=== PATIENT | female | born 1985 | race Caucasian/White ===

== ENCOUNTER 2022-07-28 04:55 | Inpatient (IN) | payer OTHER, SELFPAY ==
[2022-07-28] VITALS (7 sets, daily range): BP systolic 104–138; BP diastolic 65–87; PULSE 64–78; RESP 15–22; TEMP 36.3–36.9; O2SAT 98–100; BMI 23.6
--- NOTE | 2022-07-28 | ECG_ITS ---
Test Reason : BASELINE QTC Blood Pressure : / mmHG Vent. Rate : 068 BPM Atrial Rate : 068 BPM P-R Int : 140 ms QRS Dur : 086 ms QT Int : 420 ms P-R-T Axes : 052 -09 046 degrees QTc Int : 446 ms Normal sinus rhythm Normal ECG No previous ECGs available Referred By: Carlee Holbrook Electronically Signed By:MARÍA SANDERS
--- NOTE | ~2022-07-28 | CT_ITS ---
EXAMINATION: CT ABDOMEN AND PELVIS WITHOUT CONTRAST CLINICAL INFORMATION: Abdominal pain with constant vomiting. COMPARISON: None available. TECHNIQUE: Multidetector volumetric imaging was performed from the superior aspect of the liver through the pubic symphysis. Sagittal and coronal reformatted images were obtained on the technologist's workstation. Lack of intravenous and oral contrast limits visceral evaluation. This CT examination was performed using dose optimization techniques as appropriate, variously including the following: *Automated exposure control *Adjustment of mA and/or kV according to patient size (this includes techniques or standardized protocols for targeted exams where dose is matched to indication/reason for exam; i.e. extremities or head) *Use of iterative reconstruction technique DLP: 371 mGy-cm FINDINGS: LUNG BASES: LIVER, GALLBLADDER, AND BILIARY TREE: Unremarkable. PANCREAS: Unremarkable. SPLEEN: Unremarkable. ADRENAL GLANDS: Unremarkable. KIDNEYS AND URETERS: Several nonobstructing intrarenal calculi are seen bilaterally. One of the largest is seen in the interpolar left kidney measuring 0.3 cm (image 51, series 4). BLADDER: Unremarkable. GASTROINTESTINAL TRACT: The distal esophagus. The stomach is unremarkable. The small bowel and appendix are unremarkable. The colon and rectum are unremarkable. ABDOMINAL WALL: No significant hernia is appreciated. LYMPH NODES: No lymphadenopathy. VASCULAR: Unremarkable. PELVIC VISCERA: Unremarkable. OSSEOUS STRUCTURES: Unremarkable. CT/CT abdomen pelvis wo IV con IMPRESSION: 1. No acute intra-abdominal/pelvic abnormality to explain the patient's symptoms. 2. Nonobstructing intrarenal calculi bilaterally.
[2022-07-28 05:19] LABS: Basophils Absolute Auto 0.1 X10*3/uL (0.0-0.2); Basophils Percent Auto 0.5 % (0-2); Eosinophils Absolute Auto 0.2 X10*3/uL (0.0-0.4); Eosinophils Percent Auto 1.2 % (0-4); Hematocrit 41.4 % (37.0-47.0); Hemoglobin 14.5 g/dl (12.0-16.0); Imm Gran Abs Auto 0.06 X10*3/uL (0.00-0.03); Imm Gran Pct Auto 0.5 % (0.0-0.4); Lymphocytes Absolute Auto 1.8 X10*3/uL (1.2-4.9); Lymphocytes Percent Auto 14.1 % (20-40); MANUAL DIFF FLAG NO; Mean Corpuscular Hemoglobin 31.9 pg (27.0-33.0); Mean Corpuscular Volume 91.2 fL (80.0-98.0); Mean Platelet Volume 9.7 fL (9.4-12.3); Monocytes Absolute Auto 1.1 X10*3/uL (0.1-1.2); Monocytes Percent Auto 8.6 % (2-11); Neutrophils Absolute Auto 9.7 x10*3/uL (2.0-8.3); Neutrophils Percent Auto 75.1 % (45-73); Platelet Count 295 X10*3/uL (160-400); Red Blood Count 4.54 X10*6/uL (4.20-5.50); Red Cell Distribution Width 11.7 % (11.0-16.0); White Blood Count 12.9 X10*3/uL (4.8-10.8)
[2022-07-28 05:30] LABS: Appearance Urine Clear; Color Urine Yellow; Glucose Urine UA Negative (Negative); Leukocyte Esterase Urine Negative (Negative); Nitrite Urine Negative (Negative); PH 8.5 (5.0-9.0); Specific Gravity - Urine 1.015 (1.005-1.025); Urine Blood Negative (Negative); Urine Ketones 40 mg/dL (Negative); Urine Protein Negative (Neg-Trace)
[2022-07-28 05:35] LABS: Alanine Aminotransferase 23 U/L (0-31); Albumin Level 4.3 g/dL (3.5-5.0); Alkaline Phosphatase 49 U/L (39-117); Anion Gap 15 (12-20); Aspartate Amino Transferase 19 U/L (5-31); Bilirubin Direct 0.2 mg/dL (0.0-0.5); Bilirubin Total 0.5 mg/dL (0.0-1.0); Blood Urea Nitrogen 13 mg/dL (9-16); Calcium 9.4 mg/dL (8.4-10.2); Carbon Dioxide 20 mmol/L (22-29); Chloride 108 mmol/L (96-108); Creatinine Clr Calc Pharmacy 77.9; Estimated Glomerular Filt Rate > 60; Glucose Random 124 mg/dL (60-115); Lipase 62 U/L (8-78); Potassium 3.3 mmol/L (3.3-5.1); Sodium 140 mmol/L (135-145)
[2022-07-28] MEDS: 0.9 % Sodium Chloride 1,000 ML 999 ML IV (06:12)
[2022-07-28] MEDS: ondansetron HCL 4 MG/2 ML VIAL IVPUSH ×2 (06:12→08:09)
[2022-07-28 07:08] LABS: HCG Quantitative < 2 mIU/mL
--- NOTE | 2022-07-28 07:45 | ED.NAVMDI ---
HPI - Nausea/Vomiting/Diarrhea General Chief complaint: Nausea/Vomiting/Diarrhea Stated complaint: Vomiting & diarrhea Time Seen by Provider: 07/28/22 06:47 Source: patient Mode of arrival: ambulatory Limitations: no limitations History of Present Illness HPI Narrative: 37-year-old female came in for evaluation of persistent vomiting for the past 5-7 days. Been having vomiting for the past 7 days, patient drinks alcohol daily and smokes marijuana otherwise declines any other drugs, for the past week patient been having intractable nausea and vomiting and diffuse abdominal cramps. With nonbloody watery diarrhea patient was seen and evaluated in the ED at [facility] was given medication and felt better symptoms start worsening again. No radiographic studies done at the [facility] as per patient. Related Data Allergies Allergy/AdvReac Type Severity Reaction Status Date / Time No Known Allergies Allergy Verified 07/28/22 06:48 Review of Systems Review of Systems: All other systems are reviewed and are negative Constitutional: Reports as per HPI and Reports no additional constitutional complaints Eyes: Reports as per HPI and Reports no additional eye complaints Reports system reviewed and no additional complaints, except as documented Cardiovascular: Reports as per HPI and Reports no additional cardiovascular complaints Respiratory: Reports as per HPI and Reports no additional respiratory complaints Gastrointestinal: Reports as per HPI and Reports no additional gastrointestinal complaints Genitourinary: Reports no additional female genitourinary complaints Musculoskeletal: Reports no additional musculoskeletal complaints Skin/Breast: Reports system reviewed and no additional complaints, except as docu Psychiatric: Reports no additional psychiatric complaints Endocrine: Reports no additional endocrine complaints Hematologic/Lymphatic: Reports no additional hematologic/lymphatic complaints Allergic/Immunologic: Reports no additional allergic/immunologic complaints Reports system reviewed and no additional complaints, except as documented and Reports Abnormal speech present REPLACED BY [facility] Social History Social History Alcohol intake: current Alcohol intake frequency: holidays/special occasions only Smoked in Last 30 Days: No Use of substances other than those prescribed or required for medical reasons: No Advance Directives: No Patient : No Physical Exam Vital Signs: Vital Signs: Last Vital Signs Temp 98.2 F 07/28/22 05:03 Pulse 64 07/28/22 07:34 Resp 22 H 07/28/22 07:34 BP 138/87 07/28/22 07:34 Pulse Ox 100 07/28/22 07:34 O2 Del Method Room Air 07/28/22 07:34 BMI result Body Mass Index 23.6 Vital signs have been reviewed as appeared to be correct. Blood pressure normal. Heart rate normal. Respiration rate normal. Temperature normal. Oxygen saturation normal. Appearance: Alert. Oriented X3. No acute distress. Head: Normal external exam. Normocephalic. Atraumatic. No Beauchamp signs noted. No raccoon eyes noted Eyes: PERRLA. EOMI. Conjunctiva and sclera normal. Eyelids normal. ENT: TM's Normal. Pharynx normal. Uvula midline. Moist mucous membranes. No trismus noted. No drooling noted. No muffled voice noted. Neck: Normal inspection. Neck supple. FROM. No adenopathy. Thyroid Normal. No meningeal signs. No neck mass noted. CVS: Normal heart rate and rhythm. Heart sound normal. No murmurs noted. Pulses normal throughout. Respiratory: No respiratory distress. Painless inspiration. Breath sounds normal. No wheezes/rales/rhonchi noted. Chest nontender. No accessory muscle usage noted or decreased air movement noted. Abdomen: Soft and nontender. Bowel sounds normal in all 4 quadrants. No distention noted. No organomegaly noted. No visible injury noted. Back: No CVA tenderness. Full range of motion noted. Skin: Skin warm and dry. Normal skin color. Normal skin turgor. No rashes/lesions/lacerations noted. Extremities: No lower extremity edema. Extremities exhibit normal range of motion. Extremities nontender. Neuro: Oriented X 3. Cranial nerve exam: II-XII are grossly intact No motor deficit. No sensory deficit. Reflexes normal. Course Course Course Narrative: 37-year-old female daily alcohol use and extensive marijuana smoker (only smoke or yields with a high concentration of THC) presented with intractable N/V/D, with early alcohol withdrawal symptoms patient was seen at [facility] 2 days ago, patient is unable to tolerate p.o. intake and stop vomiting. Medications Administered Discontinued Medications Generic Name Dose Route Start Last Admin Trade Name Freq PRN Reason Stop Dose Admin Al Hydroxide/Mg Hydroxide 30 ml 07/28/22 07:05 07/28/22 08:10 Magnesium Hydrox/Alum Hydrox 30 Ml Oral.Susp PO 07/28/22 07:06 Not Given ONCE ONE Famotidine 20 mg 07/28/22 07:05 07/28/22 08:10 Famotidine/Pf 20 Mg/2 Ml Vial IVPUSH 07/28/22 07:06 20 mg ONCE ONE Administration Haloperidol 10 mg 07/28/22 07:05 07/28/22 08:11 Haloperidol 5 Mg Tablet PO 07/28/22 07:06 Not Given ONCE ONE Sodium Chloride 1,000 mls @ 999 mls/hr 07/28/22 06:15 07/28/22 09:54 Ns IV 07/28/22 07:15 Infused .Q1H1M VALORIE Infusion Lorazepam 1 mg 07/28/22 07:05 07/28/22 08:09 Lorazepam 2 Mg/Ml Vial IVPUSH 07/28/22 07:06 1 mg ONCE ONE Administration Lorazepam 1 mg 07/28/22 08:23 07/28/22 09:32 Lorazepam 2 Mg/Ml Vial IVPUSH 07/28/22 08:24 1 mg ONCE ONE Administration Metoclopramide HCl 10 mg 07/28/22 08:17 07/28/22 09:32 Metoclopramide Hcl 10 Mg/2 Ml Vial IVPUSH 07/28/22 08:18 10 mg ONCE ONE Administration Ondansetron HCl 4 mg 07/28/22 06:07 07/28/22 06:12 Ondansetron Hcl 4 Mg/2 Ml Vial IVPUSH 07/28/22 06:08 4 mg ONCE ONE Administration Ondansetron HCl 4 mg 07/28/22 07:05 07/28/22 08:09 Ondansetron Hcl 4 Mg/2 Ml Vial IVPUSH 07/28/22 07:06 4 mg ONCE ONE Administration Medical Decision Making Differential Diagnosis Differential Diagnoses: The differential diagnosis associated with the presentation includes Substance related intractable vomiting, gastroenteritis, alcohol withdrawal, dehydration, electrolyte disturbance, anemia. Admission/Observation Consideration of admission/observation: Escalation of care including admission/observation considered Consult Healthcare Provider Management of the patient was discussed with: Hospitalist Lab Data MDM Lab Attestation statement: I reviewed the patient's lab results. 07/28/22 05:13 07/28/22 05:13 Labs: Lab Results 07/28/22 07/28/22 07/28/22 Range/Units 05:13 05:13 05:25 WBC 12.9 H (4.8-10.8) X10*3/uL RBC 4.54 (4.20-5.50) X10*6/uL Hgb 14.5 (12.0-16.0) g/dl Hct 41.4 (37.0-47.0) % MCV 91.2 (80.0-98.0) fL MCH 31.9 (27.0-33.0) pg MCHC 35.0 (31.0-35.0) g/dl RDW 11.7 (11.0-16.0) % Plt Count 295 (160-400) X10*3/uL MPV 9.7 (9.4-12.3) fL Immature Gran % (Auto) 0.5 H (0.0-0.4) % Neut % (Auto) 75.1 H (45-73) % Lymph % (Auto) 14.1 L (20-40) % [place] % (Auto) 8.6 (2-11) % Eos % (Auto) 1.2 (0-4) % Baso % (Auto) 0.5 (0-2) % Lymph # (Auto) 1.8 (1.2-4.9) X10*3/uL [place] # (Auto) 1.1 (0.1-1.2) X10*3/uL Eos # (Auto) 0.2 (0.0-0.4) X10*3/uL Baso # (Auto) 0.1 (0.0-0.2) X10*3/uL Abs Immat Gran (auto) 0.06 H (0.00-0.03) X10*3/uL Absolute Neuts (auto) 9.7 H (2.0-8.3) x10*3/uL Absolute Nucleated RBC 0.000 (0.0-0.012) X10*3/uL Nucleated RBC % (auto) 0.0 (0.0-0.2) /100WBC Sodium 140 (135-145) mmol/L Potassium 3.3 (3.3-5.1) mmol/L Chloride 108 (96-108) mmol/L Carbon Dioxide 20 L (22-29) mmol/L Anion Gap 15 (12-20) BUN 13 (9-16) mg/dL Creatinine 0.76 (0.5-1.4) mg/dL Estim Creat Clear Calc 77.9 Estimated GFR > 60 Random Glucose 124 H (60-115) mg/dL Calcium 9.4 (8.4-10.2) mg/dL Total Bilirubin 0.5 (0.0-1.0) mg/dL Direct Bilirubin 0.2 (0.0-0.5) mg/dL AST 19 (5-31) U/L ALT 23 (0-31) U/L Alkaline Phosphatase 49 (39-117) U/L Total Protein 7.0 (6.5-8.0) g/dL Albumin 4.3 (3.5-5.0) g/dL Lipase 62 (8-78) U/L Beta HCG, Quant < 2 mIU/mL Urine Color Yellow Urine Appearance Clear Urine pH 8.5 (5.0-9.0) Ur Specific [place] 1.015 (1.005-1.025) Urine Protein Negative (Neg-Trace) mg/dL Urine Glucose (UA) Negative (Negative) mg/dL Urine Ketones 40 (Negative) mg/dL Urine Blood Negative (Negative) Urine Nitrite Negative (Negative) Ur Leukocyte Esterase Negative (Negative) Independent Interpretation I performed an independent interpretation of an: CT Scan (Abdomen and pelvis: No acute intra-abdominal pathology.) Radiology Impression Discussion of test interpretation with radiology: I have reviewed the radiologist's reading. Chronic Conditions Patient?s care impacted by: Other (Substance abuse.) Discharge Plan Discharge Clinical Impression: Gastroenteritis, Drug-induced nausea and vomiting, Alcohol withdrawal Patient Disposition: Admitted As Inpatient
[2022-07-28] MEDS: LORazepam 2 MG/ML VIAL 1 MG IVPUSH ×2 (08:09→09:32)
[2022-07-28] MEDS: Famotidine/PF 20 MG/2 ML VIAL IVPUSH (08:10)
[2022-07-28] MEDS: Metoclopramide HCl 10 MG/2 ML VIAL IVPUSH (09:32)
--- NOTE | 2022-07-28 12:12 | PM.IMHP ---
History of Present Illness Date of Service: 07/28/22 Attending physician on admission: [facility] Chief Complaint: n/v 37-year-old female with history of anxiety/depression, hepatitis-C treated with Epclusa completed 10/2021, daily marijuana use, and alcohol use disorder presents to the ED for evaluation of intractable nausea, vomiting, diffuse severe abdominal cramping over the last week. She was seen at [facility] ED was given droperidol with some relief in her nausea/vomiting but this has recurred and she has been unable to tolerate p.o. There has also been nonbloody watery diarrhea for the last week, about 3-4 episodes daily. She has been afebrile but does endorse sweats and chills. No melena or hematochezia. States she did eat at a restaurant prior to onset of symptoms and her friend developed some abdominal discomfort but this is fully resolved while her symptoms persisted. She does smoke high doses of THC on a daily basis. Denies any other illicit drug use and is a former smoker who quit 2 years ago. She is a daily consumer of alcohol but has not had any alcohol in the last week. In the ED, vital signs stable. Leukocytosis of 12.9, hematology studies otherwise unremarkable. Renal function normal, electrolyte levels normal. Hepatic function normal. Serum hCG negative. Urinalysis unremarkable. CT abdomen/pelvis without any acute abnormality but does show nonobstructing intrarenal calculi bilaterally. In the ED, given 2 mg lorazepam, 20 mg famotidine, 10 mg Reglan, ondansetron, and 1 L IVF. Review of Systems Review of Systems: General: No fevers, malaise, unintentional weight loss HEENT: No blurred vision, diplopia. No sore throat, nasal congestion, rhinorrhea, sinus pain, ear pain Cardiovascular: No chest pain, palpitations, or leg edema Respiratory: No shortness of breath, wheezing, cough GI: +abd pain, +n/v/d. No constipation, melena, hematochezia : No dysuria, hematuria, increased urinary frequency, decreased urinary output MSK: No myalgia, back pain Neuro: No headaches, weakness, paresthesias Skin: No rashes or lesions [facility] Medical History (Updated 07/28/22 @ 12:47 by FENG Díaz) Alcohol use disorder Alcohol withdrawal Anxiety and depression Marijuana use, continuous Social History (Updated 07/28/22 @ 12:47 by FENG Díaz) Alcohol intake: current Patient Tobacco Use Status: Former Tobacco user Substance Use Type: Marijuana Meds Allergies Allergy/AdvReac Type Severity Reaction Status Date / Time No Known Allergies Allergy Verified 07/28/22 06:48 Active Medications: Current Medications Pharmacy Consult (Consult Rx Etoh Phenob Im/Po) 1 each MISCELLANE ONCE PRN; Protocol PRN Reason: Consult order Phenobarbital (Phenobarbital 30 Mg Tablet) 30 mg PO BID VALORIE; Protocol Stop: 07/30/22 21:01 Phenobarbital (Phenobarbital 15 Mg Tablet) 15 mg PO BID VALORIE; Protocol Stop: 08/01/22 21:01 Phenobarbital (Phenobarbital 15 Mg Tablet) 15 mg PO DAILY VALORIE; Protocol Stop: 08/03/22 09:01 Phenobarbital Sodium (Phenobarbital Sodium 130 Mg/Ml Vial Im Q3hx2) 115 mg IM Q3H VALORIE; Protocol Stop: 07/28/22 18:01 Home Medications Medication Instructions Recorded Confirmed Last Taken Type azelastine 137 mcg (0.1 %) nasal 2 spray intranasal BID 07/28/22 07/28/22 07/27/22 History spray aerosol fluoxetine 20 mg capsule 20 mg PO DAILY 07/28/22 07/28/22 07/27/22 History fluticasone propionate 50 2 spray intranasal DAILY 07/28/22 07/28/22 07/27/22 History mcg/actuation nasal spray,suspension magnesium oxide 400 mg PO DAILY 07/28/22 07/28/22 07/27/22 History riboflavin (vitamin B2) 400 mg 400 mg PO DAILY 07/28/22 07/28/22 07/27/22 History tablet Physical Exam Vital Signs and Narrative: Vital Signs: Last Vital Signs Temp 98.2 F 07/28/22 11:54 Pulse 78 07/28/22 11:54 Resp 16 07/28/22 11:54 BP 114/76 07/28/22 11:54 Pulse Ox 100 07/28/22 11:54 O2 Del Method Room Air 07/28/22 11:54 BMI result Body Mass Index 23.6 Constitutional - Weak appearing, alert, in mild- moderate discomfort frequently readjusting in bed Eyes - PERRLA, EOMI Cardiovascular - S1S2, RRR, No edema Respiratory - Normal lung expansion, Normal respiratory effort, No respiratory distress, CTA bilaterally Gastrointestinal - diffuse ttp without guarding or rebound, ND; +BS Extremities - no calf tenderness bilaterally, no swelling Musculoskeletal - Normal inspection, normal ROM Skin - Warm/Dry Neurological - Alert & oriented x3 Psychological - Appropriate affect Results Labs 07/28/22 05:13 07/28/22 05:13 Labs: Laboratory Results - last 24 hr 07/28/22 07/28/22 07/28/22 05:13 05:13 05:25 MCV 91.2 MCH 31.9 MCHC 35.0 RDW 11.7 Plt Count 295 MPV 9.7 Immature Gran % (Auto) 0.5 H Neut % (Auto) 75.1 H Lymph % (Auto) 14.1 L [place] % (Auto) 8.6 Eos % (Auto) 1.2 Baso % (Auto) 0.5 Lymph # (Auto) 1.8 [place] # (Auto) 1.1 Eos # (Auto) 0.2 Baso # (Auto) 0.1 Abs Immat Gran (auto) 0.06 H Absolute Neuts (auto) 9.7 H Absolute Nucleated RBC 0.000 Nucleated RBC % (auto) 0.0 Anion Gap 15 Estim Creat Clear Calc 77.9 Estimated GFR > 60 Random Glucose 124 H Calcium 9.4 Total Bilirubin 0.5 Direct Bilirubin 0.2 AST 19 ALT 23 Alkaline Phosphatase 49 Total Protein 7.0 Albumin 4.3 Lipase 62 Beta HCG, Quant < 2 Urine Color Yellow Urine Appearance Clear Urine pH 8.5 Ur Specific [place] 1.015 Urine Protein Negative Urine Glucose (UA) Negative Urine Ketones 40 Urine Blood Negative Urine Nitrite Negative Ur Leukocyte Esterase Negative Imaging Radiologist's Impressions: Impressions Abdomen/Pelvis CT 07/28/22 08:59 IMPRESSION: 1. No acute intra-abdominal/pelvic abnormality to explain the patient's symptoms. 2. Nonobstructing intrarenal calculi bilaterally. Assessment and Plan (1) Gastroenteritis: Status: Acute (2) Drug-induced nausea and vomiting: Status: Acute Plan 37-year-old female with history of anxiety/depression, hepatitis-C treated with Epclusa completed 10/2021, daily marijuana use, and alcohol use disorder to be observed for intractable nausea and vomiting with PO intolerance # intractable nausea/vomiting with p.o. intolerance-likely related to cannabis hyperemesis syndrome -counseled on cannabis cessation -reports no relief from ondansetron, famotidine, lorazepam, and Reglan. Haldol 2 mg q.4h p.r.n. ordered. Baseline EKG for QTC ordered -keep NPO and allow small sips of clear liquids and ice chips. Advance diet as tolerated -renal function and electrolyte levels normal -mild leukocytosis of 12.9-likely reactive from vomiting -continue IVF # gastroenteritis- ? Viral in etiology -reports symptoms started shortly after eating at a restaurant and friend developed similar, though fully resolve symptoms -GI panel and C diff ordered -avoid antidiarrheals until infectious etiology ruled out -NPO for bowel rest -CT abdomen/pelvis negative for any acute abnormality # alcohol use disorder -last alcoholic beverage 1 week ago-unlikely to be experiencing withdrawal this time -add folic acid and thiamine -declines Addiction Medicine consult at this time, but states will reconsider when she is feeling better # anxiety/depression -continue home meds DVT prophylaxis-Lovenox Full code Time Spent With Patient Time: Total time managing care of this patient today ____ minutes. Quality Stroke Does the patient have a stroke diagnosis?: No VTE Prior VTE?: No VTE Risk Level:: Medical - moderate - high VTE Device Contraindication: Treatment Not Indicated VTE Drug Contraindication: N/A - Med Ordered
--- NOTE | 2022-07-28 12:32 | PHA.MEDREC ---
Pharmacy Consult ? Medication Reconciliation Pharmacy has completed the medication reconciliation.
[2022-07-28] MEDS: PHENobarbitaL sodium 130 MG/ML IM ONCE 153 MG IM (13:06)
--- NOTE | 2022-07-28 13:26 | MHC.EDTECH ---
Admitted Pt, FENG Holbrook ordered EKG. This was done and a picture of EKG was sent via [place] Text to FENG.
[2022-07-28] MEDS: Morphine Sulfate 4 MG/ML CARTRIDGE 2 MG IVPUSH (15:07)
[2022-07-28] MEDS: Haloperidol Lactate 5 MG/ML VIAL 2 MG IM (15:07)
[2022-07-28] MEDS: Lactated Ringers 1,000 ML 100 ML IVCONT (17:21)
[2022-07-28 18:30] LABS: COVID-19 Test Negative (Negative); IDNOW Serial# 08D9AD1C
[2022-07-29] MEDS: Lactated Ringers 1,000 ML 100 ML IVCONT ×2 (05:31→14:43)
[2022-07-29] MEDS: Haloperidol Lactate 5 MG/ML VIAL 2 MG IM ×2 (05:47→11:59)
[2022-07-29 06:24] LABS: CDiff Gene PCR NEGATIVE (Negative)
[2022-07-29 06:36] LABS: MANUAL DIFF FLAG NO
[2022-07-29 06:40] LABS: Basophils Percent Auto 0.6 % (0-2); Eosinophils Absolute Auto 0.1 X10*3/uL (0.0-0.4); Eosinophils Percent Auto 1.1 % (0-4); Hematocrit 37.7 % (37.0-47.0); Imm Gran Abs Auto 0.02 X10*3/uL (0.00-0.03); Imm Gran Pct Auto 0.3 % (0.0-0.4); Lymphocytes Absolute Auto 2.6 X10*3/uL (1.2-4.9); Lymphocytes Percent Auto 36.4 % (20-40); Mean Corpuscular HGB Conc 34.5 g/dl (31.0-35.0); Mean Corpuscular Hemoglobin 32.3 pg (27.0-33.0); Mean Corpuscular Volume 93.5 fL (80.0-98.0); Mean Platelet Volume 9.7 fL (9.4-12.3); Monocytes Absolute Auto 0.8 X10*3/uL (0.1-1.2); Monocytes Percent Auto 11.4 % (2-11); Neutrophils Absolute Auto 3.5 x10*3/uL (2.0-8.3); Neutrophils Percent Auto 50.2 % (45-73); Platelet Count 269 X10*3/uL (160-400); Red Blood Count 4.03 X10*6/uL (4.20-5.50); Red Cell Distribution Width 11.9 % (11.0-16.0)
[2022-07-29 06:55] LABS: Anion Gap 11 (12-20); Blood Urea Nitrogen 10 mg/dL (9-16); Calcium 8.6 mg/dL (8.4-10.2); Carbon Dioxide 23 mmol/L (22-29); Chloride 109 mmol/L (96-108); Creatinine Clr Calc Pharmacy 85.9; Estimated Glomerular Filt Rate > 60; Glucose Random 104 mg/dL (60-115); Potassium 3.8 mmol/L (3.3-5.1); Sodium 139 mmol/L (135-145)
[2022-07-29 07:59] VITALS: BP 105/63; PULSE 60; RESP 17; TEMP 36.2; O2SAT 99
[2022-07-29] MEDS: Folic Acid 1 MG TABLET PO (08:53)
[2022-07-29] MEDS: Magnesium Oxide 400 MG TABLET PO (08:53)
[2022-07-29] MEDS: FLUoxetine HCl 20 MG CAPSULE PO (08:53)
[2022-07-29] MEDS: Thiamine HCL 100 MG TABLET PO (08:53)
--- NOTE | 2022-07-29 09:22 | MHC.CM.PN ---
met with pt who is independet,pt had no preious servceis pt is covid vax x 3 lives with sister has own ride home dc home no servceis
--- NOTE | 2022-07-29 09:53 | P.PNIM_ITS ---
Subjective Subjective Date of Service: 07/29/22 <FENG Díaz - Last Filed: 07/29/22 13:59> 07/30/22 <Michael Mccracken MD - Last Filed: 07/30/22 11:27> Interval History: Seen in follow up for n/v/d Interval history: No recurrent episodes vomiting. Nausea persists, improves with haldol. No abd pain. Ongoing nonbloody diarrhea, three episodes this am, gi panel pending, cdiff negative. Only tolerates small sips of clear liquids <FENG Díaz - Last Filed: 07/29/22 13:59> Review of Systems Review of Systems: Yes all other systems are reviewed and are negative <FENG Díaz - Last Filed: 07/29/22 13:59> Physical Exam Vital Signs: Vital Signs: Last Vital Signs Temp 97.2 F 07/29/22 07:59 Pulse 60 07/29/22 07:59 Resp 17 07/29/22 07:59 BP 105/63 07/29/22 07:59 Pulse Ox 99 07/29/22 07:59 O2 Del Method Room Air 07/29/22 07:59 BMI result Body Mass Index 23.6 <FENG Díaz - Last Filed: 07/29/22 13:59> Constitutional - Awake and Alert, dark circles under eyes. No apparent distress Eyes - PERRLA, EOMI Cardiovascular - S1S2, RRR, No edema Respiratory - Normal lung expansion, Normal respiratory effort, No respiratory distress, CTA bilaterally Gastrointestinal - NT / ND; +BS; No rebound or guarding Extremities - no calf tenderness bilaterally, no swelling Skin - Warm/Dry Neurological - Alert & oriented x3 Psychological - Appropriate affect <FENG Díaz - Last Filed: 07/29/22 13:59> Objective Data Active Medications Acetaminophen (Acetaminophen 325 Mg Tablet) 650 mg PO Q6H PRN PRN Reason: Pain, Mild (Pain Scale 1-3) Azelastine HCl (Azelastine Hcl Nasal 137 Mcg/[place] 30 Ml) 2 spray NOSTRIL-B BID [place]IE Last Admin: 07/28/22 21:20 Dose: Not Given Documented By: DOMINIQUE Non-Admin Reason: not available Enoxaparin Sodium (Enoxaparin Sodium 40 Mg/0.4 Ml Syringe) 40 mg SUBCUT Q24H [facility] Last Admin: 07/28/22 16:23 Dose: Not Given Documented By: AWILDA Non-Admin Reason: Patient Refused Fluoxetine HCl (Fluoxetine Hcl 20 Mg Capsule) 20 mg PO DAILY [facility] Last Admin: 07/29/22 08:53 Dose: 20 mg Documented By: GOGO Fluticasone Propionate (Fluticasone Propionate Nasal 16 Gm [place]) 2 spray NOSTRIL-B DAILY [facility] Folic Acid (Folic Acid 1 Mg Tablet) 1 mg PO DAILY [facility] Last Admin: 07/29/22 08:53 Dose: 1 mg Documented By: GOGO Haloperidol Lactate (Haloperidol Lactate 5 Mg/Ml Vial) 2 mg IM Q4H PRN PRN Reason: nausea/vomiting Last Admin: 07/29/22 05:47 Dose: 2 mg Documented By: DOMINIQUE Lactated Ringer's (Lr) 1,000 mls @ 100 mls/hr IVCONT .Q10H [facility] Last Admin: 07/29/22 05:31 Dose: 100 mls/hr Documented By: DOMINIQUE Magnesium Oxide (Magnesium Oxide 400 Mg Tablet) 400 mg PO DAILY [facility] Last Admin: 07/29/22 08:53 Dose: 400 mg Documented By: GOGO Morphine Sulfate (Morphine Sulfate 4 Mg/Ml Cartridge) 2 mg IVPUSH Q4H PRN; Protocol PRN Reason: Pain, Severe (Pain Scale 7-10) Last Admin: 07/28/22 15:07 Dose: 2 mg Documented By: AWILDA Pharmacy Consult (Consult Rx Etoh Phenob Im/Po) 1 each MISCELLANE ONCE PRN; Pr otocol PRN Reason: Consult order Sodium Chloride (0.9 % Sodium Chloride Flush 3 Ml Syringe) 3 ml IVFLUSH QSHIFT [facility] Last Admin: 07/29/22 09:04 Dose: Not Given Documented By: GOGO Non-Admin Reason: IV Running Thiamine HCl (Thiamine Hcl 100 Mg Tablet) 100 mg PO DAILY [facility] Last Admin: 07/29/22 08:53 Dose: 100 mg Documented By: GOGO <FENG Díaz - Last Filed: 07/29/22 13:59> Labs CBC & Chem 7: 07/29/22 06:31 07/29/22 06:31 <FENG Díaz - Last Filed: 07/29/22 13:59> Labs: Laboratory Results - last 24 hr 07/28/22 07/29/22 07/29/22 17:54 05:30 06:31 MCV 93.5 MCH 32.3 MCHC 34.5 RDW 11.9 Plt Count 269 MPV 9.7 Immature Gran % (Auto) 0.3 Neut % (Auto) 50.2 Lymph % (Auto) 36.4 [place] % (Auto) 11.4 H Eos % (Auto) 1.1 Baso % (Auto) 0.6 Lymph # (Auto) 2.6 [place] # (Auto) 0.8 Eos # (Auto) 0.1 Baso # (Auto) 0.0 Abs Immat Gran (auto) 0.02 Absolute Neuts (auto) 3.5 Absolute Nucleated RBC 0.000 Nucleated RBC % (auto) 0.0 Anion Gap Estim Creat Clear Calc Estimated GFR Random Glucose Calcium C. difficile Tox B Gene NEGATIVE COVID-19 ([place]) Negative COVID-19 Clin Com See Note 07/29/22 06:31 MCV MCH MCHC RDW Plt Count MPV Immature Gran % (Auto) Neut % (Auto) Lymph % (Auto) [place] % (Auto) Eos % (Auto) Baso % (Auto) Lymph # (Auto) [place] # (Auto) Eos # (Auto) Baso # (Auto) Abs Immat Gran (auto) Absolute Neuts (auto) Absolute Nucleated RBC Nucleated RBC % (auto) Anion Gap 11 L Estim Creat Clear Calc 85.9 Estimated GFR > 60 Random Glucose 104 Calcium 8.6 D C. difficile Tox B Gene COVID-19 ([facility]) COVID-19 Clin Com <FENG Díaz - Last Filed: 07/29/22 13:59> Assessment and Plan (1) Gastroenteritis: Status: Acute <FENG Díaz - Last Filed: 07/29/22 13:59> (2) Drug-induced nausea and vomiting: Status: Acute <FENG Díaz - Last Filed: 07/29/22 13:59> Assessment and Plan: 37-year-old female with history of anxiety/depression, hepatitis-C treated with Epclusa completed 10/2021, daily marijuana use, and alcohol use disorder to be observed for intractable nausea and vomiting with PO intolerance # intractable nausea/vomiting with p.o. intolerance -counseled on cannabis cessation -No further vomiting -Haldol prn for nausea. Add famotidine BID -Continue clears -continue IVF # gastroenteritis- ?? Viral in etiology -Cdiff negative, Positive for sapovirus -Add loperamide -Continue clears, advance as tolerated # alcohol use disorder -last alcoholic beverage 1 week ago-unlikely to be experiencing withdrawal this time -continue folic acid and thiamine # anxiety/depression -continue home meds DVT prophylaxis-Lovenox Full code Pt requires ongoing inpt stay due to PO intolerance with need for IVF and diet advancement <FENG Díaz - Last Filed: 07/29/22 13:59> Time Spent With Patient Time: Total time managing care of this patient today ____ minutes. <FENG Díaz - Last Filed: 07/29/22 13:59> Quality Stroke Does the patient have a stroke diagnosis?: No <FENG Díaz - Last Filed: 07/29/22 13:59> VTE Prior VTE?: No <FENG Díaz - Last Filed: 07/29/22 13:59> VTE Risk Level:: Medical - moderate - high <FENG Díaz - Last Filed: 07/29/22 13:59> VTE Device Contraindication: Treatment Not Indicated <FENG Díaz - Last Filed: 07/29/22 13:59> VTE Drug Contraindication: N/A - Med Ordered <FENG Díaz - Last Filed: 07/29/22 13:59>
[2022-07-29] MEDS: Acetaminophen 325 MG TABLET 650 MG PO (11:59)
[2022-07-29 12:41] LABS: Adenovirus F 40/41 Not Detected (Not Detect.); Astrovirus Not Detected (Not Detect.); Campylobacter Not Detected (Not Detect.); Cryptosporidium Not Detected (Not Detect.); Cyclospora cayetanensis Not Detected (Not Detect.); E. coli EAEC Not Detected (Not Detect.); E. coli EPEC Not Detected (Not Detect.); E. coli ETEC Not Detected (Not Detect.); E. coli STEC Not Detected (Not Detect.); Entamoeba histolytica Not Detected (Not Detect.); Giardia lamblia Not Detected (Not Detect.); Norovirus GI/GII Not Detected (Not Detect.); Plesiomonas shigelloides Not Detected (Not Detect.); Rotavirus A Not Detected (Not Detect.); Salmonella Not Detected (Not Detect.); Sapovirus Detected (Not Detect.); Shigella sp./EIEC Not Detected (Not Detect.); Vibrio Not Detected (Not Detect.); Vibrio Cholerae Not Detected (Not Detect.); Yersinia enterocolitica Not Detected (Not Detect.)
[2022-07-29] MEDS: Enoxaparin Sodium 40 MG/0.4 ML SYRINGE SUBCUT (14:43)
[2022-07-29] MEDS: Famotidine/PF 20 MG/2 ML VIAL IVPUSH ×2 (14:43→20:54)
[2022-07-29 15:28] VITALS: BP 128/83; PULSE 63; RESP 16; TEMP 36.7; O2SAT 99
[2022-07-29] MEDS: Loperamide HCl 2 MG CAPSULE PO (16:24)
[2022-07-29] MEDS: 0.9 % Sodium Chloride Flush 3 ML SYRINGE IVFLUSH (16:25)
[2022-07-29] MEDS: Scopolamine 1.5 MG PATCH.TD.3 EAR-BEHIND (16:56)
[2022-07-29] MEDS: Azelastine HCl Nasal 137 MCG/Spray 30 ML 2 SPRAY NOSTRIL-B (20:54)
[2022-07-29] MEDS: Morphine Sulfate 4 MG/ML CARTRIDGE 2 MG IVPUSH (20:59)
[2022-07-29 23:47] VITALS: BP 107/70; PULSE 50; RESP 18; TEMP 36.8; O2SAT 99
[2022-07-30] MEDS: Lactated Ringers 1,000 ML 100 ML IVCONT (01:07)
[2022-07-30 07:06] VITALS: BP 118/80; PULSE 76; RESP 18; TEMP 36.1; O2SAT 99
[2022-07-30 07:06] LABS: Anion Gap 12 (12-20); Blood Urea Nitrogen 5 mg/dL (9-16); Carbon Dioxide 22 mmol/L (22-29); Chloride 108 mmol/L (96-108); Creatinine Clr Calc Pharmacy 95.5; Estimated Glomerular Filt Rate > 60; Glucose Random 81 mg/dL (60-115); Sodium 138 mmol/L (135-145)
[2022-07-30] MEDS: Famotidine/PF 20 MG/2 ML VIAL IVPUSH (08:07)
[2022-07-30] MEDS: 0.9 % Sodium Chloride Flush 3 ML SYRINGE IVFLUSH (08:07)
[2022-07-30] MEDS: Fluticasone Propionate Nasal 16 GM SPRAY 2 SPRAY NOSTRIL-B (08:11)
[2022-07-30] MEDS: Folic Acid 1 MG TABLET PO (09:23)
[2022-07-30] MEDS: Magnesium Oxide 400 MG TABLET PO (09:23)
[2022-07-30] MEDS: Thiamine HCL 100 MG TABLET PO (09:23)
[2022-07-30] MEDS: FLUoxetine HCl 20 MG CAPSULE PO (09:23)
[2022-07-30] MEDS: Acetaminophen 325 MG TABLET 650 MG PO (09:29)
--- NOTE | 2022-07-30 11:46 | P.DS_ITS ---
DS: Providers Provider Date of Service: 07/30/22 Date of admission: 07/28/22 12:33 Date of discharge: 07/30/22 Primary care physician: Unknown Physician Admitting clinician: Carlee Holbrook Attending physician on admission: Morgan Brennancoler[facility] Attending physician on discharge: Carlee Holbrook Discharging clinician: Michael Mccracken DS: Diagnosis Discharge Diagnosis (1) Gastroenteritis: Status: Acute (2) Drug-induced nausea and vomiting: Status: Acute DS: Summary Hospital Course Hospital Course: HPI on admission 07/28: 37-year-old female with history of anxiety/depression, hepatitis-C treated with Epclusa completed 10/2021, daily marijuana use, and alcohol use disorder presents to the ED for evaluation of intractable nausea, vomiting, diffuse severe abdominal cramping over the last week.? She was seen at [facility] ED was given droperidol with some relief in her nausea/vomiting but this has recurred and she has been unable to tolerate p.o.? There has also been nonbloody watery diarrhea for the last week, about 3-4 episodes daily.? She has been afebrile but does endorse sweats and chills.? No melena or hematochezia.? States she did eat at a restaurant prior to onset of symptoms and her friend developed some abdominal discomfort but this is fully resolved while her symptoms persisted.? She does smoke high doses of THC on a daily basis.? Denies any other illicit drug use and is a former smoker who quit 2 years ago.? She is a daily consumer of alcohol but has not had any alcohol in the last week. In the ED, vital signs stable.? Leukocytosis of 12.9, hematology studies otherwise unremarkable.? Renal function normal, electrolyte levels normal.? Hepatic function normal.? Serum hCG negative.? Urinalysis unremarkable.? CT abdomen/pelvis without any acute abnormality but does show nonobstructing intrarenal calculi bilaterally.? In the ED, given 2 mg lorazepam, 20 mg famotidine, 10 mg Reglan, ondansetron, and 1 L IVF. Hospital Course: Pt admitted for nausea, diarrhea, and vomiting. There was no persistent vomiting making cannibus hyperemesis syndrome less likely. Stool studies were positive for sapovirus. Patient was treated with IVF, haldol prn nausea, immodium and pain management. IV famotidine also added with full resolution of symptoms. Diet was advanced with good tolerance. Vital signs remained stable throughout admission. Renal function and electrolyte levels normal. Initial leukocytosis was likely reactive and resolved fully. She will be discharged home with prn haloperidol for any recurrent nausea and can continue using immodium prn. Recommend bland diet, advance as tolerated. Fluids encouraged. Follow up with PCP soon. Time Spent with Patient Time attestation: Total time managing care of this patient today ____ minutes. Discharge coordination time: Greater than 30 minutes Quality: Safe Use of Opioids Does Pt have an Active Cancer Diagnosis on the Problem List?: No Quality: Stroke Does the patient have a stroke diagnosis?: No Physical Exam Vital Signs: Vital Signs: Last Vital Signs Temp 97 F 07/30/22 07:06 Pulse 76 07/30/22 07:06 Resp 18 07/30/22 07:06 BP 118/80 07/30/22 07:06 Pulse Ox 99 07/30/22 07:06 O2 Del Method Room Air 07/30/22 07:06 BMI result Body Mass Index 23.6 Constitutional - Awake and Alert, No apparent distress Eyes - PERRLA, EOMI Cardiovascular - S1S2, RRR, No edema Respiratory - Normal lung expansion, Normal respiratory effort, No respiratory distress, CTA bilaterally Gastrointestinal - NT / ND; +BS; No rebound or guarding Extremities - no calf tenderness bilaterally, no swelling Skin - Warm/Dry Neurological - Alert & oriented x3 Psychological - Appropriate affect DS: Data Data Completed and Pending Labs on day of discharge: Laboratory Results - last 24 hr 07/29/22 07/30/22 05:30 05:54 Sodium 138 Potassium 4.0 Chloride 108 Carbon Dioxide 22 Anion Gap 12 BUN 5 L Creatinine 0.62 Estim Creat Clear Calc 95.5 Estimated GFR > 60 Random Glucose 81 Calcium 8.0 L D Stl C. cayetanensis PCR Not Detected Stool Rotavirus A PCR Not Detected Stl Adenov F 40/41 PCR Not Detected Stool Astrovirus (PCR) Not Detected Stool Campylobacter PCR Not Detected Stool Cryptosporidium PCR Not Detected Stl Sh Tox Pr E STEC PCR Not Detected Stool E coli O157 PCR Not applicable Stl Enterotoxigenic E PCR Not Detected Stool EPEC (PCR) Not Detected Stool EAEC (PCR) Not Detected Stl E. histolytica PCR Not Detected Stool Giardia Lamblia PCR Not Detected Stl P. shigelloides PCR Not Detected Stool Salmonella PCR Not Detected Stool Sapovirus (PCR) Detected A Stl Shigella/EIEC PCR Not Detected St Y.enterocolitica PCR Not Detected Stool Vibrio (PCR) Not Detected Stl Vibrio cholerae PCR Not Detected Stl Norovirus GI/GII PCR Not Detected Discharge Plan Discharge Anticipated Discharge Date/Time: 07/30/22 11:38 Patient Disposition: Home, Self-Care Discharge Diagnosis: Viral gastroenteritis Referrals: Physician,Unknown J [Primary Care Provider] - 1 Week Discharge Medications: New haloperidol 1 mg tablet 1 mg PO Q8H PRN (Reason: nausea and vomiting) Qty: 10 0RF Continued azelastine 137 mcg (0.1 %) aerosol,spray 2 spray intranasal BID fluoxetine 20 mg capsule 20 mg PO DAILY fluticasone propionate 50 mcg/actuation spray,suspension 2 spray intranasal DAILY riboflavin (vitamin B2) 400 mg tablet 400 mg PO DAILY magnesium oxide 400 mg magnesium tablet 400 mg PO DAILY Discharge Orders: Discharge Order (Routine); Ordered 07/30/22 Ordered By: Carlee Holbrook Diet: Advance to usual diet Activity on Discharge: As tolerated Stand Alone Forms: Patient Portal Discharge page Care Plan Goals: See below Health Concerns: Viral gastroenteritis Plan of Treatment: Viral gastroenteritis -Stool studies positive for sapovirus- antiviral therapy not indicated -Treated with IV fluids, haldol for nausea without recurrence of vomiting, and immodium for diarrhea with resolution of symptoms -Diet advanced and tolerated. Recommend bland diet (bananas, rice, apples/applesauce, toast, yogurt etc), advance as tolerated -given predominance of diarrhea and limited vomiting, less suspicious for cannabis hyperemesis syndrome -Can use immodium if needed for diarrhea and haldol for nausea (Rx sent) -Drink plenty of fluids Assessment: See above
[2022-07-30] MEDS: diphenhydrAMINE HCL 50 MG/ML VIAL 25 MG IVPUSH (12:40)
--- NOTE | 2022-07-30 12:40 | MHC.CM.PN ---
PATIENT REPORTS ELPIDIO LING BEING HER PCP. UPDATE SENT TO CM OFFICE VIA QUICK TASK
== END 2022-07-30 14:14 | disposition home or self-care (01) | DRG 249 ==
LOC: HO.ED 11:53 → HO.S3 19:32 → HO.EDOVER 07-29 14:10 → HO.S3 07-29 14:10
PROVIDERS: Admitting Provider Physician Assistant; Emergency Provider Emergency Medicine; PCP Internal Medicine; Visit Provider Physician Assistant
DX: A08.4 Viral intestinal infection, unspecified (principal); F10.10 Alcohol abuse, uncomplicated; F32.A Depression, unspecified; N20.0 Calculus of kidney; F12.10 Cannabis abuse, uncomplicated; F41.9 Anxiety disorder, unspecified; R11.2 Nausea with vomiting, unspecified; Z20.822 Contact with and (suspected) exposure to COVID-19; Z86.19 Personal history of other infectious and parasitic diseases; Z87.891 Personal history of nicotine dependence; Z79.899 Other long term (current) drug therapy
CPT/HCPCS: 36415; 74176; 80048; 80076; 81003; 83690; 84702; 85025; 87493; 87507; 87635; 93005; 99222; 99285; J1200; J1650; J2060; J2270; J2405; J2560; J2765

== ENCOUNTER 2022-10-29 00:39 | Emergency (ER) | payer OTHER, SELFPAY ==
--- NOTE | ~2022-10-29 | XR_ITS ---
EXAMINATION: XR HAND, RIGHT CLINICAL INFORMATION: Pain, injury COMPARISON: None available. TECHNIQUE: PA, lateral, and oblique views of the right hand. FINDINGS: Suboptimal assessment of the digits due to positioning. Per technologist report, patient was unable to fully extend fingers. There is questionable subtle cortical irregularity of the tuft of the distal phalanx in the second digit, for which subtle fracture cannot be excluded. No additional focal osseous abnormality is seen. Articular alignment throughout the hand appears anatomic. XR/XR hand RT 2V IMPRESSION: Questionable subtle cortical irregularity of the tuft of the distal phalanx of the second digit, for which subtle fracture cannot be excluded. Otherwise no acute findings identified.
[2022-10-29 00:40] VITALS: BP 145/91; PULSE 105; RESP 18; TEMP 36.8; O2SAT 98; BMI 23.6
--- NOTE | 2022-10-29 01:42 | ED.GENADULT ---
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 She reports for last 2 days she has had worsening pain to her right hand Her pain is mostly to the right index finger and she has had trouble bending and straightening it Denies any trauma to the area. She reports that she does frequently do repetitive motions and is often using power tools She describes the pain as 8/10, throbbing Related Data Home Medications Medication Instructions Recorded Confirmed azelastine 137 mcg (0.1 %) nasal 2 spray intranasal BID 07/28/22 07/28/22 spray aerosol fluoxetine 20 mg capsule 20 mg PO DAILY 07/28/22 07/28/22 fluticasone propionate 50 2 spray intranasal DAILY 07/28/22 07/28/22 mcg/actuation nasal spray,suspension magnesium oxide 400 mg PO DAILY 07/28/22 07/28/22 riboflavin (vitamin B2) 400 mg 400 mg PO DAILY 07/28/22 07/28/22 tablet Previous Rx's Medication Instructions Recorded haloperidol 1 mg tablet 1 mg PO Q8H PRN nausea and 07/30/22 vomiting #10 tabs ibuprofen 600 mg tablet 600 mg PO Q6H PRN pain #20 tabs 10/29/22 tramadol 50 mg tablet 50 mg PO Q6H PRN severe pain 10/29/22 (scale score 7-10) #12 tabs Allergies Allergy/AdvReac Type Severity Reaction Status Date / Time No Known Allergies Allergy Verified 07/28/22 06:48 Review of Systems Musculoskeletal: Musculoskeletal: Reports joint swelling, Reports limited range of motion and Reports stiffness Integumentary/Breasts: Skin/Breast: Denies erythema PMFSH Past Medical History Medical History (Updated 10/29/22 @ 01:48 by Oswaldo North) Alcohol use disorder Alcohol withdrawal Anxiety and depression Marijuana use, continuous Social History Social History (Updated 07/28/22 @ 12:47 by FENG Díaz) Alcohol intake: current Patient Tobacco Use Status: Former Tobacco user Substance Use Type: Marijuana Advance Directives: No Advance Directives Information Provided: No Physical Exam ED Vital Signs: Vital Signs - 24 hr 10/29/22 00:40 Temperature 98.3 F Pulse Rate 105 H Respiratory Rate 18 Blood Pressure 145/91 H Pulse Oximetry 98 Oxygen Delivery Method Room Air BMI result Body Mass Index 23.6 Const General: healthy appearing, comfortable, no acute distress, alert and awake Nutritional Appearance: well nourished Orientation/consciousness: patient oriented x3 HENMT Head: Yes normocephalic and Yes atraumatic Eyes Eyelids: Yes eyelids normal Conjunctivae: conjunctivae normal Sclerae: sclerae normal Corneas: corneas normal Pupils: Equal, round and reactive pupils present EOM: EOMs intact bilaterally Neck Neck: Yes full ROM Resp Effort & Inspection: normal respiratory effort, able to speak in complete sentences and not labored Skin General skin exam: no rashes or lesions noted and elasticity normal Neuro General: patient oriented x3 Cranial nerves: Yes Equal, round and reactive pupils present and Yes Bilaterally intact EOM present Cognition (Neuro): normal cognition Extrem Other: Patient has significant tenderness between the right 2nd MCP and PIP joint. There is no significant deformity. The patient is able to flex this joint to about 135? of flexion only. She is also unable to extend to 180?. While lying open wounds. Course Reevaluation(s) Reevaluation #1: Patient's x-ray of the right 2nd digit cannot rule out fracture of the tuft left 2nd digit. However the patient has no tenderness to the distal phalanx of the right 2nd finger. This is 30 less likely to be fracture Time: 01:56 Medical Decision Making Medical Decision Making MDM Narrative: 37-year-old female presents for evaluation of right hand pain. Her history finger of the right index finger. Will treat with a wrist splint, NSAIDs Differential Diagnosis Differential Diagnoses: The differential diagnosis associated with the presentation includes Stenosing tenosynovitis Trigger finger Arthritis Contusion Fracture Dislocation Independent Interpretation I performed an independent interpretation of an: Plain X-Ray (No osseous deformity to the right hand) Radiology Impression Discussion of test interpretation with radiology: I have reviewed the radiologist's reading. (Unable to rule out tuft fracture of the right 2nd distal feeling) Discharge Plan Discharge Clinical Impression: Hand pain, right Patient Disposition: Home, Self-Care Instructions: Trigger Finger (ED) Additional Instructions: Your history and physical exam is consistent with trigger finger You may use the splint for comfort Use ibuprofen as needed for pain You may use tramadol for more severe or breakthrough pain This may make you sleepy, did not drink alcohol or drive after taking it Do not take this within 12 hours of going to work or operating heavy machinery either Follow-up with Dr. Mitzi Valdovinos, orthopedic hand surgeon Prescriptions: New ibuprofen 600 mg tablet 600 mg PO Q6H PRN (Reason: pain) Qty: 20 0RF tramadol 50 mg tablet 50 mg PO Q6H PRN (Reason: severe pain (scale score 7-10)) Qty: 12 0RF No Action azelastine 137 mcg (0.1 %) aerosol,spray 2 spray intranasal BID fluoxetine 20 mg capsule 20 mg PO DAILY fluticasone propionate 50 mcg/actuation spray,suspension 2 spray intranasal DAILY riboflavin (vitamin B2) 400 mg tablet 400 mg PO DAILY magnesium oxide 400 mg magnesium tablet 400 mg PO DAILY haloperidol 1 mg tablet 1 mg PO Q8H PRN (Reason: nausea and vomiting) Qty: 10 0RF Referrals: Mitzi Valdovinos MD [Physician] - (trigger finger right 2nd finger) Stand Alone Forms: Work/School Release
[2022-10-29 01:57] VITALS: BP 125/80; PULSE 77; RESP 18; TEMP 36.9; O2SAT 99
== END 2022-10-29 02:22 | disposition home or self-care (01) ==
PROVIDERS: Emergency Provider Emergency Medicine Emergency Medical Services; PCP Internal Medicine
DX: M79.641 Pain in right hand (principal)
CPT/HCPCS: 73120; 99283; 99284

== ENCOUNTER 2023-01-05 16:20 | Emergency (ER) | payer OTHER, SELFPAY ==
--- NOTE | ~2023-01-05 | US_ITS ---
EXAMINATION: US PELVIC AND TRANSVAGINAL US PELVIS OVARIAN DOPPLER CLINICAL INFORMATION: Pelvic pain COMPARISON: CT abdomen and pelvis from 07/20/2022 TECHNIQUE: Ultrasound of the pelvis is performed using both transabdominal and transvaginal transducers. Duplex Doppler imaging with spectral waveform analysis of the ovaries is performed. FINDINGS: UTERUS AND CERVIX The anteflexed, anteverted uterus measures 6.2 x 2.7 x 3.7 cm ([id number] x AP x transverse dimension). 0.8 x 0.5 x 0.6 m hypoechoic structure in the posterior body likely represents a small leiomyoma. The echocardiography radiology technologist identified an area of slightly heterogeneous echotexture within the uterine body measuring approximately 1.8 x 1.1 x 1.4 cm -- possible leiomyoma. There is a questionable subserosal leiomyoma of the uterine fundus. The cervix is normal. The endometrium is normal, measures 0.3 cm AP ADNEXA: The ovaries have normal size and echotexture. The right ovary is 2.6 x 1.8 x 1.6 cm and left ovary 2.7 x 1.7 x 1.5 cm. No adnexal masses. Color Doppler images with spectral waveforms show presence of normal arterial and venous flow within each ovary. FREE FLUID: None detected. US/US pelvic and transvaginal IMPRESSION: * No acute sonographic abnormalities in the pelvis. No evidence of ovarian cyst or torsion. No pelvic free fluid. * There appear to be a few small uterine leiomyomas.
--- NOTE | ~2023-01-05 | US_ITS ---
EXAMINATION: US PELVIC AND TRANSVAGINAL US PELVIS OVARIAN DOPPLER CLINICAL INFORMATION: Pelvic pain COMPARISON: CT abdomen and pelvis from 07/20/2022 TECHNIQUE: Ultrasound of the pelvis is performed using both transabdominal and transvaginal transducers. Duplex Doppler imaging with spectral waveform analysis of the ovaries is performed. FINDINGS: UTERUS AND CERVIX The anteflexed, anteverted uterus measures 6.2 x 2.7 x 3.7 cm ([id number] x AP x transverse dimension). 0.8 x 0.5 x 0.6 m hypoechoic structure in the posterior body likely represents a small leiomyoma. The product/device technologist identified an area of slightly heterogeneous echotexture within the uterine body measuring approximately 1.8 x 1.1 x 1.4 cm -- possible leiomyoma. There is a questionable subserosal leiomyoma of the uterine fundus. The cervix is normal. The endometrium is normal, measures 0.3 cm AP ADNEXA: The ovaries have normal size and echotexture. The right ovary is 2.6 x 1.8 x 1.6 cm and left ovary 2.7 x 1.7 x 1.5 cm. No adnexal masses. Color Doppler images with spectral waveforms show presence of normal arterial and venous flow within each ovary. FREE FLUID: None detected. US/US pelvic ovarian doppler IMPRESSION: * No acute sonographic abnormalities in the pelvis. No evidence of ovarian cyst or torsion. No pelvic free fluid. * There appear to be a few small uterine leiomyomas.
--- NOTE | ~2023-01-05 | US_ITS ---
EXAMINATION: US ABDOMEN LIMITED CLINICAL INFORMATION: Right upper quadrant pain. COMPARISON: CTA abdomen and pelvis dated 07/28/2022. TECHNIQUE: Real-time imaging of the right upper quadrant abdominal viscera. FINDINGS: PANCREAS: Normal. LIVER: Normal. The liver is normal in size. The liver contour is normal. Parenchymal echogenicity is normal. No focal hepatic lesion. There is no intrahepatic biliary duct dilatation seen. GALLBLADDER: Normal. The gallbladder is physiologically distended without evidence of stones, sludge, polyps, wall thickening or pericholecystic fluid. COMMON BILE DUCT: Normal in caliber measuring 0.2 cm in diameter. RIGHT KIDNEY: Normal. No hydronephrosis. No renal calculi or focal parenchymal lesions. The kidney measures 10.6 cm in maximum dimension. FREE FLUID: None. US/US abdomen limited IMPRESSION: Unremarkable examination.
[2023-01-05 16:53] VITALS: BP 135/78; PULSE 61; RESP 18; TEMP 36.6; O2SAT 100; BMI 25.4
--- NOTE | 2023-01-05 16:53 | ED_ITS ---
HPI - General Adult General Chief complaint: Abdominal Pain Stated complaint: Abdominal pain/Vomiting Time Seen by Provider: 01/05/23 18:41 Source: patient Mode of arrival: ambulatory Limitations: no limitations History of Present Illness HPI narrative: 37-year-old female with history of anxiety/depression, hepatitis-C treated with Epclusa completed 10/2021, daily marijuana use, and alcohol use disorder presents to the ED for evaluation of intractable nausea, vomiting, diffuse severe abdominal cramping similar to that when she was admitted here in 07/23 patient been having similar symptoms off and on for almost a year CT scan done in 07/23 was negative for any gallstone Related Data Home Medications Medication Instructions Recorded Confirmed azelastine 137 mcg (0.1 %) nasal 2 spray intranasal BID 07/28/22 07/28/22 spray aerosol fluoxetine 20 mg capsule 20 mg PO DAILY 07/28/22 07/28/22 fluticasone propionate 50 2 spray intranasal DAILY 07/28/22 07/28/22 mcg/actuation nasal spray,suspension magnesium oxide 400 mg PO DAILY 07/28/22 07/28/22 riboflavin (vitamin B2) 400 mg 400 mg PO DAILY 07/28/22 07/28/22 tablet Previous Rx's Medication Instructions Recorded haloperidol 1 mg tablet 1 mg PO Q8H PRN nausea and 07/30/22 vomiting #10 tabs ibuprofen 600 mg tablet 600 mg PO Q6H PRN pain #20 tabs 10/29/22 tramadol 50 mg tablet 50 mg PO Q6H PRN severe pain 10/29/22 (scale score 7-10) #12 tabs lorazepam 1 mg tablet (Ativan) 1 mg PO BID PRN anxiety #14 tabs 01/05/23 ondansetron 4 mg disintegrating 4 mg PO Q6-8H PRN nausea and 01/05/23 tablet vomiting #7 tabs Allergies Allergy/AdvReac Type Severity Reaction Status Date / Time No Known Allergies Allergy Verified 01/05/23 16:53 Review of Systems 2 Review of Systems: Yes all other systems are reviewed and are negative PMFSH Past Medical History Medical History Alcohol use disorder Alcohol withdrawal Anxiety and depression Marijuana use, continuous Social History Social History Alcohol intake: never Patient Tobacco Use Status: Former Tobacco user Smoked in Last 30 Days: No Use of substances other than those prescribed or required for medical reasons: Yes Substance Use Type: Marijuana Substance Use Type Other:: pt sts she takes dabs Advance Directives: No Advance Directives Information Provided: No Physical Exam ED Vital Signs: Vital Signs - 24 hr 01/05/23 16:53 01/05/23 18:21 01/05/23 22:35 Temperature 97.9 F 98.1 F Pulse Rate 61 73 96 Respiratory Rate 18 12 15 Blood Pressure 135/78 143/86 H 107/69 Pulse Oximetry 100 100 95 Oxygen Delivery Method Room Air Room Air Room Air BMI result Body Mass Index 25.4 Appearance: Alert. Oriented X3. anxious Eyes: PERRLA, No Nystagmus ENT: Pharynx normal. Oral Mucosa moist Neck: Normal inspection. Neck supple. CVS: Normal heart rate and rhythm. Pulses normal. Respiratory: No respiratory distress. Equal air entry bilateral, no wheezing/rales/rhonchi Abdomen: Soft mild diffuse tender, Bowel sounds are present, no mass palpable, no CVA tenderness Skin: Skin warm and dry. Normal skin color. Normal skin turgor. Extremities: No lower extremity edema. No calf tenderness Neuro: Oriented X 3. Course Course Course Narrative: This is an RME: Additional HPI, ROS, PE not included below will be deferred to primary provider. 37 year old female with hx of Hep C presenting with right lower quadrant pain and vaginal bleeding. Patient denies chances of . Patient states she has been passing large clots of blood for the past three days, thought her period would be ending today. Denies history of ovarian cysts. Patient had a few shots of alcohol yesterday but none today. 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 Medications Administered Discontinued Medications Generic Name Dose Route Start Last Admin Trade Name Freq PRN Reason Stop Dose Admin Famotidine 20 mg 01/05/23 18:54 01/05/23 19:07 Famotidine/Pf 20 Mg/2 Ml Vial IVPUSH 01/05/23 18:55 20 mg ONCE ONE Administration Sodium Chloride 1,000 mls @ 999 mls/hr 01/05/23 18:54 01/05/23 23:30 Ns IV 01/05/23 19:54 Infused .Q1H1M ONE Infusion Sodium Chloride 1,000 mls @ 999 mls/hr 01/05/23 20:03 01/05/23 23:30 Ns IV 01/05/23 21:03 Infused .Q1H1M ONE Infusion Lorazepam 2 mg 01/05/23 18:54 01/05/23 19:05 Lorazepam 2 Mg/Ml Vial IVPUSH 01/05/23 18:55 2 mg ONCE ONE Administration Prochlorperazine Edisylate 10 mg 01/05/23 18:54 01/05/23 19:09 Prochlorperazine Edisylate 10 Mg/2 Ml Vial IVPUSH 01/05/23 18:55 10 mg ONCE ONE Administration Medical Decision Making Medical Decision Making MDM Narrative: mother is insisting that she should get cholecystectomy because has same which she had when she had biliary colic patient advised to follow-up with gastroenterology/surgeon. 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 will give her IV fluids Ativan and Compazine and re-evaluate Lab Data 01/05/23 16:49 01/05/23 16:50 Labs: Lab Results 01/05/23 01/05/23 01/05/23 Range/Units 16:48 16:49 16:50 WBC 13.1 H (4.8-10.8) X10*3/uL RBC 4.27 (4.20-5.50) X10*6/uL Hgb 13.8 (12.0-16.0) g/dl Hct 39.1 (37.0-47.0) % MCV 91.6 (80.0-98.0) fL MCH 32.3 (27.0-33.0) pg MCHC 35.3 H (31.0-35.0) g/dl RDW 12.0 (11.0-16.0) % Plt Count 320 (160-400) X10*3/uL MPV 10.2 (9.4-12.3) fL Immature Gran % (Auto) 0.3 (0.0-0.4) % Neut % (Auto) 90.2 H (45-73) % Lymph % (Auto) 5.6 L (20-40) % [place] % (Auto) 3.4 (2-11) % Eos % (Auto) 0.0 (0-4) % Baso % (Auto) 0.5 (0-2) % Lymph # (Auto) 0.7 L (1.2-4.9) X10*3/uL [place] # (Auto) 0.4 (0.1-1.2) X10*3/uL Eos # (Auto) 0.0 (0.0-0.4) X10*3/uL Baso # (Auto) 0.1 (0.0-0.2) X10*3/uL Abs Immat Gran (auto) 0.04 H (0.00-0.03) X10*3/uL Absolute Neuts (auto) 11.8 H (2.0-8.3) x10*3/uL Absolute Nucleated RBC 0.000 (0.0-0.012) X10*3/uL Nucleated RBC % (auto) 0.0 (0.0-0.2) /100WBC Smear Tech's Comments VERIFIED Sodium 141 (135-145) mmol/L Potassium 3.5 (3.3-5.1) mmol/L Chloride 109 H (96-108) mmol/L Carbon Dioxide 21 L (22-29) mmol/L Anion Gap 15 (12-20) BUN 14 (9-16) mg/dL Creatinine 0.75 (0.5-1.4) mg/dL Estim Creat Clear Calc 84.1 Estimated GFR > 60 Random Glucose 141 H (60-115) mg/dL Lactic Acid 2.2 H* (0.5-2.0) mmol/L Lactic Acid F/U @ 2Hr (0.5-2.0) mmol/L Lactic Acid F/U @ 4Hr (0.5-2.0) mmol/L Calcium 9.6 D (8.4-10.2) mg/dL Magnesium 2.0 (1.6-2.6) mg/dL Total Bilirubin 0.4 (0.0-1.0) mg/dL AST 19 (5-31) U/L ALT 17 (0-31) U/L Alkaline Phosphatase 66 (39-117) U/L Total Protein 7.7 (6.5-8.0) g/dL Albumin 4.6 (3.5-5.0) g/dL Lipase 14 (8-78) U/L Beta HCG, Quant < 2 mIU/mL Urine Color Urine Appearance Urine pH (5.0-9.0) Ur Specific [place] (1.005-1.025) Urine Protein (Neg-Trace) mg/dL Urine Glucose (UA) (Negative) mg/dL Urine Ketones (Negative) mg/dL Urine Blood (Negative) Urine Nitrite (Negative) Ur Leukocyte Esterase (Negative) Urine RBC (0-2) /HPF Urine WBC (0-5) /HPF Ur Squamous Epith Cells (0-2) /HPF Urine Bacteria (None Seen) Hyaline Casts (0-2) /LPF Urine Opiates Screen (Not Detect) Urine Fentanyl Screen (Not Detect) Ur Barbiturates Screen (Not Detect) Ur Phencyclidine Scrn (Not Detect) Ur Amphetamines Screen (Not Detect) U Benzodiazepines Scrn (Not Detect) Urine Cocaine Screen (Not Detect) U Marijuana (THC) Screen (Not Detect) Ethyl Alcohol < 10 mg/dL 01/05/23 01/05/23 01/05/23 Range/Units 19:51 19:52 22:07 WBC (4.8-10.8) X10*3/uL RBC (4.20-5.50) X10*6/uL Hgb (12.0-16.0) g/dl Hct (37.0-47.0) % MCV (80.0-98.0) fL MCH (27.0-33.0) pg MCHC (31.0-35.0) g/dl RDW (11.0-16.0) % Plt Count (160-400) X10*3/uL MPV (9.4-12.3) fL Immature Gran % (Auto) (0.0-0.4) % Neut % (Auto) (45-73) % Lymph % (Auto) (20-40) % [place] % (Auto) (2-11) % Eos % (Auto) (0-4) % Baso % (Auto) (0-2) % Lymph # (Auto) (1.2-4.9) X10*3/uL [place] # (Auto) (0.1-1.2) X10*3/uL Eos # (Auto) (0.0-0.4) X10*3/uL Baso # (Auto) (0.0-0.2) X10*3/uL Abs Immat Gran (auto) (0.00-0.03) X10*3/uL Absolute Neuts (auto) (2.0-8.3) x10*3/uL Absolute Nucleated RBC (0.0-0.012) X10*3/uL Nucleated RBC % (auto) (0.0-0.2) /100WBC Smear Tech's Comments Sodium (135-145) mmol/L Potassium (3.3-5.1) mmol/L Chloride (96-108) mmol/L Carbon Dioxide (22-29) mmol/L Anion Gap (12-20) BUN (9-16) mg/dL Creatinine (0.5-1.4) mg/dL Estim Creat Clear Calc Estimated GFR Random Glucose (60-115) mg/dL Lactic Acid (0.5-2.0) mmol/L Lactic Acid F/U @ 2Hr 3.1 H* (0.5-2.0) mmol/L Lactic Acid F/U @ 4Hr 1.6 (0.5-2.0) mmol/L Calcium (8.4-10.2) mg/dL Magnesium 1.9 (1.6-2.6) mg/dL Total Bilirubin (0.0-1.0) mg/dL AST (5-31) U/L ALT (0-31) U/L Alkaline Phosphatase (39-117) U/L Total Protein (6.5-8.0) g/dL Albumin (3.5-5.0) g/dL Lipase 12 (8-78) U/L Beta HCG, Quant < 2 mIU/mL Urine Color Urine Appearance Urine pH (5.0-9.0) Ur Specific [place] (1.005-1.025) Urine Protein (Neg-Trace) mg/dL Urine Glucose (UA) (Negative) mg/dL Urine Ketones (Negative) mg/dL Urine Blood (Negative) Urine Nitrite (Negative) Ur Leukocyte Esterase (Negative) Urine RBC (0-2) /HPF Urine WBC (0-5) /HPF Ur Squamous Epith Cells (0-2) /HPF Urine Bacteria (None Seen) Hyaline Casts (0-2) /LPF Urine Opiates Screen (Not Detect) Urine Fentanyl Screen (Not Detect) Ur Barbiturates Screen (Not Detect) Ur Phencyclidine Scrn (Not Detect) Ur Amphetamines Screen (Not Detect) U Benzodiazepines Scrn (Not Detect) Urine Cocaine Screen (Not Detect) U Marijuana (THC) Screen (Not Detect) Ethyl Alcohol mg/dL 01/05/23 01/05/23 Range/Units 22:07 22:07 WBC (4.8-10.8) X10*3/uL RBC (4.20-5.50) X10*6/uL Hgb (12.0-16.0) g/dl Hct (37.0-47.0) % MCV (80.0-98.0) fL MCH (27.0-33.0) pg MCHC (31.0-35.0) g/dl RDW (11.0-16.0) % Plt Count (160-400) X10*3/uL MPV (9.4-12.3) fL Immature Gran % (Auto) (0.0-0.4) % Neut % (Auto) (45-73) % Lymph % (Auto) (20-40) % [place] % (Auto) (2-11) % Eos % (Auto) (0-4) % Baso % (Auto) (0-2) % Lymph # (Auto) (1.2-4.9) X10*3/uL [place] # (Auto) (0.1-1.2) X10*3/uL Eos # (Auto) (0.0-0.4) X10*3/uL Baso # (Auto) (0.0-0.2) X10*3/uL Abs Immat Gran (auto) (0.00-0.03) X10*3/uL Absolute Neuts (auto) (2.0-8.3) x10*3/uL Absolute Nucleated RBC (0.0-0.012) X10*3/uL Nucleated RBC % (auto) (0.0-0.2) /100WBC Smear Tech's Comments Sodium (135-145) mmol/L Potassium (3.3-5.1) mmol/L Chloride (96-108) mmol/L Carbon Dioxide (22-29) mmol/L Anion Gap (12-20) BUN (9-16) mg/dL Creatinine (0.5-1.4) mg/dL Estim Creat Clear Calc Estimated GFR Random Glucose (60-115) mg/dL Lactic Acid (0.5-2.0) mmol/L Lactic Acid F/U @ 2Hr (0.5-2.0) mmol/L Lactic Acid F/U @ 4Hr (0.5-2.0) mmol/L Calcium (8.4-10.2) mg/dL Magnesium (1.6-2.6) mg/dL Total Bilirubin (0.0-1.0) mg/dL AST (5-31) U/L ALT (0-31) U/L Alkaline Phosphatase (39-117) U/L Total Protein (6.5-8.0) g/dL Albumin (3.5-5.0) g/dL Lipase (8-78) U/L Beta HCG, Quant mIU/mL Urine Color Yellow Urine Appearance Cloudy Urine pH 7.5 (5.0-9.0) Ur Specific [place] 1.015 (1.005-1.025) Urine Protein Negative (Neg-Trace) mg/dL Urine Glucose (UA) Negative (Negative) mg/dL Urine Ketones 15 (Negative) mg/dL Urine Blood Moderate (2+) H (Negative) Urine Nitrite Negative (Negative) Ur Leukocyte Esterase Negative (Negative) Urine RBC >20 H (0-2) /HPF Urine WBC 0-5 (0-5) /HPF Ur Squamous Epith Cells 0-2 (0-2) /HPF Urine Bacteria None Seen (None Seen) Hyaline Casts 0-2 (0-2) /LPF Urine Opiates Screen Not Detected (Not Detect) Urine Fentanyl Screen Not Detected (Not Detect) Ur Barbiturates Screen Not Detected (Not Detect) Ur Phencyclidine Scrn Not Detected (Not Detect) Ur Amphetamines Screen Not Detected (Not Detect) U Benzodiazepines Scrn Not Detected (Not Detect) Urine Cocaine Screen Not Detected (Not Detect) U Marijuana (THC) Screen POSITIVE H (Not Detect) Ethyl Alcohol mg/dL Discharge Plan Discharge Clinical Impression: Cannabis abuse with cannabis-induced disorder, Anxiety Patient Disposition: Home, Self-Care Instructions: Generalized Anxiety Disorder (ED), Cannabis Abuse (ED) Additional Instructions: do not use cannabis at that may be the cause for your vomiting take Ativan 1 mg tablet 2 times a day as needed for anxiety Zofran for persistent nausea /vomiting follow-up with your PCP/ surgeon Prescriptions: New lorazepam [Ativan] 1 mg tablet 1 mg PO BID PRN (Reason: anxiety) Qty: 14 0RF ondansetron 4 mg tablet,disintegrating 4 mg PO Q6-8H PRN (Reason: nausea and vomiting) Qty: 7 0RF No Action azelastine 137 mcg (0.1 %) aerosol,spray 2 spray intranasal BID fluoxetine 20 mg capsule 20 mg PO DAILY fluticasone propionate 50 mcg/actuation spray,suspension 2 spray intranasal DAILY riboflavin (vitamin B2) 400 mg tablet 400 mg PO DAILY magnesium oxide 400 mg magnesium tablet 400 mg PO DAILY haloperidol 1 mg tablet 1 mg PO Q8H PRN (Reason: nausea and vomiting) Qty: 10 0RF ibuprofen 600 mg tablet 600 mg PO Q6H PRN (Reason: pain) Qty: 20 0RF tramadol 50 mg tablet 50 mg PO Q6H PRN (Reason: severe pain (scale score 7-10)) Qty: 12 0RF Referrals: Shady Cedillo MD [Physician] - 1 week
[2023-01-05 17:02] LABS: Basophils Absolute Auto 0.1 X10*3/uL (0.0-0.2); Basophils Percent Auto 0.5 % (0-2); Hematocrit 39.1 % (37.0-47.0); Hemoglobin 13.8 g/dl (12.0-16.0); Imm Gran Abs Auto 0.04 X10*3/uL (0.00-0.03); Imm Gran Pct Auto 0.3 % (0.0-0.4); Lymphocytes Absolute Auto 0.7 X10*3/uL (1.2-4.9); Lymphocytes Percent Auto 5.6 % (20-40); MANUAL DIFF FLAG SCAN; Mean Corpuscular HGB Conc 35.3 g/dl (31.0-35.0); Mean Corpuscular Hemoglobin 32.3 pg (27.0-33.0); Mean Corpuscular Volume 91.6 fL (80.0-98.0); Mean Platelet Volume 10.2 fL (9.4-12.3); Monocytes Absolute Auto 0.4 X10*3/uL (0.1-1.2); Monocytes Percent Auto 3.4 % (2-11); Neutrophils Absolute Auto 11.8 x10*3/uL (2.0-8.3); Neutrophils Percent Auto 90.2 % (45-73); Platelet Count 320 X10*3/uL (160-400); Red Blood Count 4.27 X10*6/uL (4.20-5.50); SCAN SMEAR FLAG 1; White Blood Count 13.1 X10*3/uL (4.8-10.8)
[2023-01-05 17:16] LABS: SLIDE REVIEW VERIFIED
[2023-01-05 17:20] LABS: Lactic Acid 2.2 mmol/L (0.5-2.0)
[2023-01-05 17:25] LABS: Alanine Aminotransferase 17 U/L (0-31); Albumin Level 4.6 g/dL (3.5-5.0); Alkaline Phosphatase 66 U/L (39-117); Anion Gap 15 (12-20); Aspartate Amino Transferase 19 U/L (5-31); Bilirubin Total 0.4 mg/dL (0.0-1.0); Blood Urea Nitrogen 14 mg/dL (9-16); Calcium 9.6 mg/dL (8.4-10.2); Carbon Dioxide 21 mmol/L (22-29); Chloride 109 mmol/L (96-108); Creatinine Clr Calc Pharmacy 84.1; Estimated Glomerular Filt Rate > 60; Ethanol < 10 mg/dL; Glucose Random 141 mg/dL (60-115); HCG Quantitative < 2 mIU/mL; Lipase 14 U/L (8-78); Potassium 3.5 mmol/L (3.3-5.1); Sodium 141 mmol/L (135-145); Total Protein 7.7 g/dL (6.5-8.0)
[2023-01-05 18:21] VITALS: BP 143/86; PULSE 73; RESP 12; TEMP 36.7; O2SAT 100
[2023-01-05 18:57] LABS: Reflex Lactate? Lactic Acid Added
[2023-01-05] MEDS: LORazepam 2 MG/ML VIAL IVPUSH (19:05)
[2023-01-05] MEDS: Famotidine/PF 20 MG/2 ML VIAL IVPUSH (19:07)
[2023-01-05] MEDS: Prochlorperazine Edisylate 10 MG/2 ML VIAL IVPUSH (19:09)
[2023-01-05] MEDS: 0.9 % Sodium Chloride 1,000 ML 999 ML IV ×2 (19:09→20:24)
[2023-01-05 20:23] LABS: Lipase 12 U/L (8-78); Magnesium 1.9 mg/dL (1.6-2.6)
--- NOTE | 2023-01-05 20:24 | PC.NURSE ---
pt reporting decreased nausea, increased drowsiness. rn explained that is a side effect of the compazine. 2nd liter of fluids infusing along with first, per MAR. attempted to get urine sample but pt was unable to give one. will try again. will ctm
[2023-01-05 20:27] LABS: ~Lactic Acid-LAB USE ONLY 3.1 mmol/L (0.5-2.0)
[2023-01-05 20:35] LABS: HCG Quantitative < 2 mIU/mL
[2023-01-05 21:56] LABS: Reflex Lactate? 2 Y
[2023-01-05 22:15] LABS: Appearance Urine Cloudy; Color Urine Yellow; Glucose Urine UA Negative (Negative); Leukocyte Esterase Urine Negative (Negative); Nitrite Urine Negative (Negative); PH 7.5 (5.0-9.0); Specific Gravity - Urine 1.015 (1.005-1.025); UMIC TRIGGER UACC YES; Urine Blood Moderate (2+) (Negative); Urine Ketones 15 mg/dL (Negative); Urine Protein Negative (Neg-Trace)
[2023-01-05 22:20] LABS: Bacteria Urine None Seen (None Seen); Hyaline Casts Urine 0-2 /LPF (0-2); RBC Urine >20 /HPF (0-2); Squamous Epithelial Cell Urine 0-2 /HPF (0-2); WBC Urine 0-5 /HPF (0-5)
[2023-01-05 22:24] LABS: Amphetamine Screen Urine Not Detected (Not Detect); Barbiturates, Urine Not Detected (Not Detect); Benzodiazepines Screen Urine Not Detected (Not Detect); Cannabinoid Screen Urine POSITIVE (Not Detect); Cocaine Screen Urine Not Detected (Not Detect); Fentanyl, urine Not Detected (Not Detect); Opiate Screen Urine Not Detected (Not Detect); Phencyclidine Screen Urine Not Detected (Not Detect)
[2023-01-05 22:26] LABS: ~Lactic Acid-LAB USE ONLY 1.6 mmol/L (0.5-2.0)
[2023-01-05 22:35] VITALS: BP 107/69; PULSE 96; RESP 15; O2SAT 95
== END 2023-01-05 23:28 | disposition home or self-care (01) ==
PROVIDERS: Physician Assistant; Emergency Provider Internal Medicine; PCP Internal Medicine
DX: F12.19 Cannabis abuse with unspecified cannabis-induced disorder (principal); F41.1 Generalized anxiety disorder; F43.0 Acute stress reaction; R10.2 Pelvic and perineal pain; Z79.899 Other long term (current) drug therapy
CPT/HCPCS: 36415; 76705; 76830; 76856; 80053; 80307; 81001; 83605; 83690; 83735; 84702; 85025; 87040; 93975; 96361; 96374; 96375; 99284; J2060

== ENCOUNTER 2023-01-07 04:50 | Emergency (ER) | payer OTHER, SELFPAY ==
--- NOTE | 2023-01-07 07:03 | ED_ITS ---
HPI - Nausea/Vomiting/Diarrhea General Chief complaint: Chest Pain Time Seen by Provider: 01/07/23 06:57 Source: patient and old records reviewed Mode of arrival: ambulatory Limitations: other (poor historian) History of Present Illness HPI Narrative: 37 yo female with hx of THC use and alcohol use though she tells me she isn't in withdrawal and doesn't drink that much - she did tell RN she was in ETOH withdrawal. She comes in with c/o n/v and anxiety. She denies chest pain to me but states her epigastric area hurts. She states it has been going on for 3 days. She notes this happens frequently to her and she needs it to stop. She also feels her tongue is shaking. She is very anxious and not a reliable historian at this time. Admitted back in July for n/v diarrhea abdominal pain found to have sapovirus treated with PRN haldol, was on THC and alcohol as well at that time. MD elicited complaint: nausea, vomiting and abdominal pain Pertinent past history: alcohol abuse Onset (ago): day(s) (3) Description of vomiting: food contents and watery Associated nausea: Yes Associated abdominal pain: Yes Location of pain: epigastric Radiation: diffuse Pain consistency: constant Severity: moderate Quality: aching, dull and constant Exacerbating factors: eating Relieving factors: none Context: alcohol abuse and marijuana use Associated symptoms: loss of appetite, malaise, nausea/vomiting and anxiety Related Data Home Medications Medication Instructions Recorded Confirmed azelastine 137 mcg (0.1 %) nasal 2 spray intranasal BID 07/28/22 07/28/22 spray aerosol fluoxetine 20 mg capsule 20 mg PO DAILY 07/28/22 07/28/22 fluticasone propionate 50 2 spray intranasal DAILY 07/28/22 07/28/22 mcg/actuation nasal spray,suspension magnesium oxide 400 mg PO DAILY 07/28/22 07/28/22 riboflavin (vitamin B2) 400 mg 400 mg PO DAILY 07/28/22 07/28/22 tablet Previous Rx's Medication Instructions Recorded haloperidol 1 mg tablet 1 mg PO Q8H PRN nausea and 07/30/22 vomiting #10 tabs ibuprofen 600 mg tablet 600 mg PO Q6H PRN pain #20 tabs 10/29/22 tramadol 50 mg tablet 50 mg PO Q6H PRN severe pain 10/29/22 (scale score 7-10) #12 tabs lorazepam 1 mg tablet (Ativan) 1 mg PO BID PRN anxiety #14 tabs 01/05/23 ondansetron 4 mg disintegrating 4 mg PO Q6-8H PRN nausea and 01/05/23 tablet vomiting #7 tabs ondansetron 4 mg disintegrating 4 mg PO Q8H PRN nausea and 01/07/23 tablet vomiting #20 tabs promethazine 25 mg rectal 25 mg [place] Q6H PRN nausea and 01/07/23 suppository vomiting #12 ea Allergies Allergy/AdvReac Type Severity Reaction Status Date / Time No Known Allergies Allergy Verified 01/05/23 16:53 Review of Systems 2 Review of Systems: Constitutional : No Weight loss, No Fever, No Chills Cardiovascular : No Chest Pain, No SOB, NoEdema Respiratory : No Cough, No Sputum, No Wheezing Gastrointestinal : Positive Nausea, Positive Vomiting, no Diarrhea, positive abdominal Pain, No Hematochezia, No Melena Genitourinary : No Dysuria, No Urinary Frequency, No Hematuria, No Urgency Musculoskeletal : No joint pain, No Myalgias, No Joint Swelling Skin : No Skin Lesions, No rash Neuro : No Weakness, No Numbness, No Dizziness, No Headache Psych : No Anxiety/Panic, No Depression All other systems reviewed and are negative. Gastrointestinal: Gastrointestinal: Reports nausea PMFSH Past Medical History Attestation statement: The following information was validated with the patient. Source: old records reviewed Medical History Alcohol use disorder Anxiety and depression Marijuana use, continuous Alcohol withdrawal Social History Social History Alcohol intake: never Patient Tobacco Use Status: Former Tobacco user Substance Use Type: Marijuana Advance Directives: No Advance Directives Information Provided: Yes Physical Exam 2 Vital Signs: Vital Signs: Last Vital Signs Temp 97.7 F 01/07/23 07:32 Pulse 64 01/07/23 07:32 Resp 16 01/07/23 07:32 BP 141/89 H 01/07/23 07:32 Pulse Ox 100 01/07/23 07:32 O2 Del Method Room Air 01/07/23 07:32 BMI result Body Mass Index 33.1 Appearance: Alert. Oriented X3. No acute distress. Anxious Eyes: Pupils equal, round and reactive to light. ENT: Pharynx mildly dry MM Neck: Normal inspection. Neck supple. CVS: Normal heart rate and rhythm. Pulses normal. Respiratory: No respiratory distress. Breath sounds normal. Abdomen: Soft and mild epigastric ttp no rebound Skin: Skin warm and dry. Normal skin color. Normal skin turgor. Extremities: No lower extremity edema. Neuro: Oriented X 3. No motor deficit. No sensory deficit. Course Course Course Narrative: asleep feeling better Reevaluation(s) Reevaluation #1: tolerating PO no signs of withdrawal stable for DC Medications Administered Discontinued Medications Generic Name Dose Route Start Last Admin Trade Name Freq PRN Reason Stop Dose Admin Sodium Chloride 1,000 mls @ 999 mls/hr 01/07/23 07:15 01/07/23 09:29 Ns IV 01/07/23 08:15 Infused .Q1H1M VALORIE Infusion Lorazepam 1 mg 01/07/23 07:13 01/07/23 07:43 Lorazepam 2 Mg/Ml Vial IVPUSH 01/07/23 07:14 1 mg STAT STA Administration Ondansetron HCl 4 mg 01/07/23 07:04 01/07/23 07:43 Ondansetron Hcl 4 Mg/2 Ml Vial IVPUSH 01/07/23 07:05 4 mg ONCE ONE Administration Potassium Chloride 40 meq 01/07/23 07:50 01/07/23 08:18 Potassium Chloride Packet 20 Meq Packet PO 01/07/23 07:51 40 meq ONCE ONE Administration Medical Decision Making Medical Decision Making MDM Narrative: 37 yo female with PMH of ETOH and THC use - migraines, anxiety here with n/v epigastric pain and prior diarrhea but that resolved this has been going on for 3 days. At this time she is very anxious. She denies chest pain to me. She feels her tongue is weird and shaky - she seems like anxiety vs possible withdrawal. Her tongue exhibits no signs of swelling or angioedema. I have ordered labs, IVF, zofran and ativan. Hx of haldol needs in past. Differential Diagnosis Differential Diagnoses: The differential diagnosis associated with the presentation includes gastritis, pancreatitis, withdrawal, medication withdrawal, THC induced vomiting Admission/Observation Consideration of admission/observation: Escalation of care including admission/observation considered tolerated PO stable for DC hx of elevated WBC count feels much better Lab Data MDM Lab Attestation statement: I reviewed the patient's lab results. 01/07/23 07:19 01/07/23 07:19 Labs: Lab Results 01/07/23 01/07/23 Range/Units 07:19 07:51 WBC 14.0 H (4.8-10.8) X10*3/uL RBC 4.32 (4.20-5.50) X10*6/uL Hgb 13.9 (12.0-16.0) g/dl Hct 39.8 (37.0-47.0) % MCV 92.1 (80.0-98.0) fL MCH 32.2 (27.0-33.0) pg MCHC 34.9 (31.0-35.0) g/dl RDW 12.5 (11.0-16.0) % Plt Count 304 (160-400) X10*3/uL MPV 9.8 (9.4-12.3) fL Immature Gran % (Auto) 0.2 (0.0-0.4) % Neut % (Auto) 89.2 H (45-73) % Lymph % (Auto) 6.9 L (20-40) % [place] % (Auto) 3.4 (2-11) % Eos % (Auto) 0.0 (0-4) % Baso % (Auto) 0.3 (0-2) % Lymph # (Auto) 1.0 L (1.2-4.9) X10*3/uL [place] # (Auto) 0.5 (0.1-1.2) X10*3/uL Eos # (Auto) 0.0 (0.0-0.4) X10*3/uL Baso # (Auto) 0.0 (0.0-0.2) X10*3/uL Abs Immat Gran (auto) 0.03 (0.00-0.03) X10*3/uL Absolute Neuts (auto) 12.5 H (2.0-8.3) x10*3/uL Absolute Nucleated RBC 0.000 (0.0-0.012) X10*3/uL Nucleated RBC % (auto) 0.0 (0.0-0.2) /100WBC Sodium 140 (135-145) mmol/L Potassium 3.1 L (3.3-5.1) mmol/L Chloride 108 (96-108) mmol/L Carbon Dioxide 22 (22-29) mmol/L Anion Gap 13 (12-20) BUN 14 (9-16) mg/dL Creatinine 0.70 (0.5-1.4) mg/dL Estim Creat Clear Calc 137.8 Estimated GFR > 60 Random Glucose 131 H (60-115) mg/dL Calcium 9.7 (8.4-10.2) mg/dL Magnesium 1.7 (1.6-2.6) mg/dL Total Bilirubin 0.5 (0.0-1.0) mg/dL Direct Bilirubin 0.2 (0.0-0.5) mg/dL AST 20 (5-31) U/L ALT 18 (0-31) U/L Alkaline Phosphatase 58 (39-117) U/L Total Protein 7.7 (6.5-8.0) g/dL Albumin 4.5 (3.5-5.0) g/dL Lipase 31 (8-78) U/L Beta HCG, Quant < 2 mIU/mL Urine Color Yellow Urine Appearance Clear Urine pH 8.0 (5.0-9.0) Ur Specific [place] 1.015 (1.005-1.025) Urine Protein Negative (Neg-Trace) mg/dL Urine Glucose (UA) Negative (Negative) mg/dL Urine Ketones 15 (Negative) mg/dL Urine Blood Small (1+) H (Negative) Urine Nitrite Negative (Negative) Ur Leukocyte Esterase Negative (Negative) Urine RBC 3-5 H (0-2) /HPF Urine WBC 0-5 (0-5) /HPF Ur Squamous Epith Cells 3-5 (0-2) /HPF Urine Bacteria None Seen (None Seen) Hyaline Casts 0-2 (0-2) /LPF Urine Opiates Screen Not Detected (Not Detect) Urine Fentanyl Screen Not Detected (Not Detect) Ur Barbiturates Screen Not Detected (Not Detect) Ur Phencyclidine Scrn Not Detected (Not Detect) Ur Amphetamines Screen Not Detected (Not Detect) U Benzodiazepines Scrn Not Detected (Not Detect) Urine Cocaine Screen Not Detected (Not Detect) U Marijuana (THC) Screen POSITIVE H (Not Detect) Ethyl Alcohol < 10 mg/dL External Record Review External record reviewed: Inpatient record Tests considered The following testing was considered but not selected: CT scan hx of same with negative imaging in past Prescription Management I considered prescription management with: Other (nausea medications) Discharge Plan Discharge Clinical Impression: Anxiety, Acute hypokalemia Nausea & vomiting Qualifiers: Vomiting type: unspecified Qualified Code(s): R11.2 - Nausea with vomiting, unspecified Patient Disposition: Home, Self-Care Instructions: Hypokalemia (ED), Acute Nausea and Vomiting (ED), Acute Abdominal Pain (ED), Anxiety (ED) Additional Instructions: return for worsening symptoms, fevers vomiting pain inability to eat or drink or any other concerns. eat a bland diet and advance slowly over 48 hours. stay hydrated Prescriptions: New promethazine 25 mg suppository 25 mg [place] Q6H PRN (Reason: nausea and vomiting) Qty: 12 0RF ondansetron 4 mg tablet,disintegrating 4 mg PO Q8H PRN (Reason: nausea and vomiting) Qty: 20 0RF No Action azelastine 137 mcg (0.1 %) aerosol,spray 2 spray intranasal BID fluoxetine 20 mg capsule 20 mg PO DAILY fluticasone propionate 50 mcg/actuation spray,suspension 2 spray intranasal DAILY riboflavin (vitamin B2) 400 mg tablet 400 mg PO DAILY magnesium oxide 400 mg magnesium tablet 400 mg PO DAILY haloperidol 1 mg tablet 1 mg PO Q8H PRN (Reason: nausea and vomiting) Qty: 10 0RF lorazepam [Ativan] 1 mg tablet 1 mg PO BID PRN (Reason: anxiety) Qty: 14 0RF ondansetron 4 mg tablet,disintegrating 4 mg PO Q6-8H PRN (Reason: nausea and vomiting) Qty: 7 0RF ibuprofen 600 mg tablet 600 mg PO Q6H PRN (Reason: pain) Qty: 20 0RF tramadol 50 mg tablet 50 mg PO Q6H PRN (Reason: severe pain (scale score 7-10)) Qty: 12 0RF Stand Alone Forms: Work/School Release
[2023-01-07 07:07] VITALS: BP 118/70; PULSE 90; RESP 20; O2SAT 95; BMI 33.1
[2023-01-07 07:24] LABS: MANUAL DIFF FLAG NO
[2023-01-07 07:25] LABS: Basophils Percent Auto 0.3 % (0-2); Hematocrit 39.8 % (37.0-47.0); Hemoglobin 13.9 g/dl (12.0-16.0); Imm Gran Abs Auto 0.03 X10*3/uL (0.00-0.03); Imm Gran Pct Auto 0.2 % (0.0-0.4); Lymphocytes Percent Auto 6.9 % (20-40); Mean Corpuscular HGB Conc 34.9 g/dl (31.0-35.0); Mean Corpuscular Hemoglobin 32.2 pg (27.0-33.0); Mean Corpuscular Volume 92.1 fL (80.0-98.0); Mean Platelet Volume 9.8 fL (9.4-12.3); Monocytes Absolute Auto 0.5 X10*3/uL (0.1-1.2); Monocytes Percent Auto 3.4 % (2-11); Neutrophils Absolute Auto 12.5 x10*3/uL (2.0-8.3); Neutrophils Percent Auto 89.2 % (45-73); Platelet Count 304 X10*3/uL (160-400); Red Blood Count 4.32 X10*6/uL (4.20-5.50); Red Cell Distribution Width 12.5 % (11.0-16.0)
[2023-01-07 07:32] VITALS: BP 141/89; PULSE 64; RESP 16; TEMP 36.5; O2SAT 100
[2023-01-07] MEDS: LORazepam 2 MG/ML VIAL 1 MG IVPUSH (07:43)
[2023-01-07] MEDS: 0.9 % Sodium Chloride 1,000 ML 999 ML IV (07:43)
[2023-01-07] MEDS: ondansetron HCL 4 MG/2 ML VIAL IVPUSH (07:43)
--- NOTE | 2023-01-07 07:44 | PC.NURSE ---
MEDICATED ORDERED. RESTING ON STRETCHER
[2023-01-07 07:48] LABS: Alanine Aminotransferase 18 U/L (0-31); Albumin Level 4.5 g/dL (3.5-5.0); Alkaline Phosphatase 58 U/L (39-117); Anion Gap 13 (12-20); Aspartate Amino Transferase 20 U/L (5-31); Bilirubin Direct 0.2 mg/dL (0.0-0.5); Bilirubin Total 0.5 mg/dL (0.0-1.0); Blood Urea Nitrogen 14 mg/dL (9-16); Calcium 9.7 mg/dL (8.4-10.2); Carbon Dioxide 22 mmol/L (22-29); Chloride 108 mmol/L (96-108); Creatinine Clr Calc Pharmacy 137.8; Estimated Glomerular Filt Rate > 60; Glucose Random 131 mg/dL (60-115); HCG Quantitative < 2 mIU/mL; Lipase 31 U/L (8-78); Magnesium 1.7 mg/dL (1.6-2.6); Potassium 3.1 mmol/L (3.3-5.1); Sodium 140 mmol/L (135-145); Total Protein 7.7 g/dL (6.5-8.0)
[2023-01-07 08:05] LABS: Appearance Urine Clear; Color Urine Yellow; Glucose Urine UA Negative (Negative); Leukocyte Esterase Urine Negative (Negative); Nitrite Urine Negative (Negative); Specific Gravity - Urine 1.015 (1.005-1.025); UMIC TRIGGER UACC YES; Urine Blood Small (1+) (Negative); Urine Ketones 15 mg/dL (Negative); Urine Protein Negative (Neg-Trace)
[2023-01-07 08:13] LABS: Amphetamine Screen Urine Not Detected (Not Detect); Barbiturates, Urine Not Detected (Not Detect); Benzodiazepines Screen Urine Not Detected (Not Detect); Cannabinoid Screen Urine POSITIVE (Not Detect); Cocaine Screen Urine Not Detected (Not Detect); Ethanol < 10 mg/dL; Fentanyl, urine Not Detected (Not Detect); Opiate Screen Urine Not Detected (Not Detect); Phencyclidine Screen Urine Not Detected (Not Detect)
[2023-01-07] MEDS: Potassium Chloride Packet 20 MEQ PACKET 40 MEQ PO (08:18)
[2023-01-07 08:52] LABS: Bacteria Urine None Seen (None Seen); Hyaline Casts Urine 0-2 /LPF (0-2); WBC Urine 0-5 /HPF (0-5)
[2023-01-07 09:30] VITALS: BP 127/68; PULSE 74; RESP 18; TEMP 37; O2SAT 98
--- NOTE | 2023-01-07 09:57 | PC.NURSE ---
aox4 denies vomiting/diarr/nausea. +CSM. stable vs. walks well/talks w/o issue. calm, coopeartive. no sx visible anx.
== END 2023-01-07 09:56 | disposition home or self-care (01) ==
PROVIDERS: Emergency Provider Emergency Medicine
DX: R11.2 Nausea with vomiting, unspecified (principal); R07.89 Other chest pain; R10.13 Epigastric pain; F41.9 Anxiety disorder, unspecified; E87.6 Hypokalemia; Z87.891 Personal history of nicotine dependence; Z79.899 Other long term (current) drug therapy
CPT/HCPCS: 36415; 80048; 80076; 80307; 81001; 83690; 83735; 84702; 85025; 96361; 96374; 96375; 99284; J2060; J2405

== ENCOUNTER 2023-09-15 08:50 | Emergency (ER) | payer OTHER, SELFPAY ==
--- NOTE | ~2023-09-15 | US_ITS ---
EXAMINATION: US OBSTETRICAL ULTRASOUND CLINICAL INFORMATION: Pain during . Bleeding. COMPARISON: Prior ultrasound exams from 10/16/2019 and 10/18/2020. LMP: 08/06/2023. Gestational age by maternal dates is 5 weeks, 5 days. Estimated date of delivery by maternal dates is 05/12/2024. TECHNIQUE: Sonographic imaging of the pelvis is performed using a transabdominal transducer. No transvaginal imaging performed. FINDINGS: The uterus is partially obscured by bowel. The visualized uterus has normal size, contour and myometrial echotexture. The endometrium has normal homogeneous echotexture and measures 0.6 cm AP. There is no evidence of a gestational sac or fluid in the endometrial cavity. The right ovary is 1.7 x 3.1 x 1.6 cm, volume of 4.5 mL. An indeterminate 2.7 x 2.2 x 2.2 cm structure adjacent to the ovary does not have any internal flow on color Doppler imaging. There is no gestational sac or fluid in this area of the adnexa. Difficult to determine whether this might represent a subserosal leiomyoma. No pelvic free fluid. The left adnexal area is not evaluated. The senior cytotechnologist reports that the patient was unable to tolerate the transabdominal pelvic ultrasound examination and requested exam termination. US/US pelvic limited IMPRESSION: * Limited ultrasound examination. The left adnexal area was not evaluated due to patient's request to terminate the examination. * Indeterminate avascular 2.7 x 2.2 x 2.2 cm structure in the right adnexal area, possibly representing a subserosal leiomyoma. * No sonographic evidence of an intrauterine . Also, there is no gestational sac or fluid in right adnexal area (i.e., there is no overt ectopic ). Usually, a gestational sac becomes visible by the end of the fifth week when the serum beta-hCG levels have risen to > 1,500 - 2,000 mIU/mL. Alternatively, there could be lack of visualization of due to recent spontaneous . Since this examination does not entirely exclude ectopic , recommend correlation with the trend in the quantitative beta-hCG levels.
[2023-09-15 09:18] VITALS: BP 107/89; PULSE 81; RESP 18; TEMP 36.9; O2SAT 98; BMI 23.6
--- NOTE | 2023-09-15 09:24 | ECG_ITS ---
Test Reason : qt eval Blood Pressure : / mmHG Vent. Rate : 080 BPM Atrial Rate : 000 BPM P-R Int : 000 ms QRS Dur : 090 ms QT Int : 410 ms P-R-T Axes : 000 -15 039 degrees QTc Int : 472 ms Poor data quality Possible Normal sinus rhythm RSR' or QR pattern in V1 suggests right ventricular conduction delay Nonspecific ST abnormality Abnormal ECG When compared with ECG of 28-JUL-2022 13:20, Junctional rhythm has replaced Sinus rhythm Referred By: Gerri Thompson Electronically Signed By:LAKESHIA ARTHUR MD
[2023-09-15 09:44] LABS: MANUAL DIFF FLAG NO
[2023-09-15 09:55] LABS: Basophils Absolute Auto 0.1 X10*3/uL (0.0-0.2); Basophils Percent Auto 0.6 % (0-2); Eosinophils Percent Auto 0.2 % (0-4); Hematocrit 42.5 % (37.0-47.0); Imm Gran Abs Auto 0.07 X10*3/uL (0.00-0.03); Imm Gran Pct Auto 0.6 % (0.0-0.4); Lymphocytes Percent Auto 8.3 % (20-40); Mean Corpuscular HGB Conc 35.3 g/dl (31.0-35.0); Mean Corpuscular Volume 93.6 fL (80.0-98.0); Mean Platelet Volume 10.8 fL (9.4-12.3); Monocytes Absolute Auto 0.4 X10*3/uL (0.1-1.2); Monocytes Percent Auto 3.2 % (2-11); Neutrophils Absolute Auto 10.7 x10*3/uL (2.0-8.3); Neutrophils Percent Auto 87.1 % (45-73); Platelet Count 254 X10*3/uL (160-400); Red Blood Count 4.54 X10*6/uL (4.20-5.50); Red Cell Distribution Width 11.9 % (11.0-16.0); White Blood Count 12.3 X10*3/uL (4.8-10.8)
[2023-09-15 10:10] LABS: Alanine Aminotransferase 21 U/L (0-31); Albumin Level 4.3 g/dL (3.5-5.0); Alkaline Phosphatase 74 U/L (39-117); Anion Gap 15 (12-20); Aspartate Amino Transferase 20 U/L (5-31); Bilirubin Total 0.4 mg/dL (0.0-1.0); Blood Urea Nitrogen 8 mg/dL (9-16); Calcium 9.3 mg/dL (8.4-10.2); Carbon Dioxide 18 mmol/L (22-29); Chloride 110 mmol/L (96-108); Creatinine Clr Calc Pharmacy 76.2; Estimated Glomerular Filt Rate > 60; Glucose Random 124 mg/dL (60-115); Potassium 3.4 mmol/L (3.3-5.1); Sodium 140 mmol/L (135-145); Total Protein 7.7 g/dL (6.5-8.0)
[2023-09-15 10:11] LABS: HCG Quantitative < 2 mIU/mL
[2023-09-15 10:34] LABS: Influenza A PCR NEGATIVE (Negative); Influenza B PCR NEGATIVE (Negative); Resp Syncy Virus RNA Qual PCR NEGATIVE (Negative); SARS COV2 PCR INHOUSE NEGATIVE (Negative)
== END 2023-09-15 13:28 | disposition left against medical advice (07) ==
PROVIDERS: Physician Assistant Medical; Emergency Provider Emergency Medicine
DX: R10.9 Unspecified abdominal pain (principal); R11.2 Nausea with vomiting, unspecified; R94.31 Abnormal electrocardiogram [ECG] [EKG]; Z03.818 Encounter for observation for suspected exposure to other biological agents ruled out
CPT/HCPCS: 0241U; 36415; 76857; 80053; 84702; 85025; 93005; 99283; 99284

== ENCOUNTER → 2023-09-15 09:24 | Outpatient (BNV) | payer OTHER, SELFPAY | PROVIDERS: Visit Provider Internal Medicine Cardiovascular Disease | DX: R94.31 Abnormal electrocardiogram [ECG] [EKG] (principal) | CPT/HCPCS: 93010 ==

== ENCOUNTER 2023-11-09 11:09 | Emergency (ER) | payer OTHER, SELFPAY ==
[2023-11-09] VITALS (7 sets, daily range): BP systolic 105–143; BP diastolic 46–96; PULSE 75–94; RESP 12–30; TEMP 37–37.1; O2SAT 97–100; BMI 19.8
--- NOTE | 2023-11-09 12:14 | ED.GENADULT ---
HPI - General Adult General Stated complaint: Left detox ama-vomiting dehydrated Related Data Home Medications ?Medication ?Instructions ?Recorded ?Confirmed azelastine 137 mcg (0.1 %) nasal 2 spray intranasal BID 07/28/22 07/28/22 spray fluoxetine 20 mg capsule 20 mg PO DAILY 07/28/22 07/28/22 fluticasone propionate 50 2 spray intranasal DAILY 07/28/22 07/28/22 mcg/actuation nasal spray,suspension magnesium oxide 400 mg PO DAILY 07/28/22 07/28/22 riboflavin (vitamin B2) 400 mg 400 mg PO DAILY 07/28/22 07/28/22 tablet Previous Rx's ?Medication ?Instructions ?Recorded haloperidol 1 mg tablet 1 mg PO Q8H PRN nausea and 07/30/22 vomiting #10 tabs ibuprofen 600 mg tablet 600 mg PO Q6H PRN pain #20 tabs 10/29/22 tramadol 50 mg tablet 50 mg PO Q6H PRN severe pain 10/29/22 (scale score 7-10) #12 tabs lorazepam 1 mg tablet (Ativan) 1 mg PO BID PRN anxiety #14 tabs 01/05/23 ondansetron 4 mg disintegrating 4 mg PO Q6-8H PRN nausea and 01/05/23 tablet vomiting #7 tabs ondansetron 4 mg disintegrating 4 mg PO Q8H PRN nausea and 01/07/23 tablet vomiting #20 tabs promethazine 25 mg rectal 25 mg [place] Q6H PRN nausea and 01/07/23 suppository vomiting #12 ea lorazepam 1 mg tablet (Ativan) 1 mg PO BID PRN anxiety #14 tabs 01/08/23 Allergies Allergy/AdvReac Type Severity Reaction Status Date / Time No Known Allergies Allergy Verified 11/09/23 12:18 [facility] Past Medical History Medical History Alcohol use disorder Anxiety and depression Marijuana use, continuous Alcohol withdrawal Social History Social History Alcohol intake: unknown Comment: Report given by previous RN ([place]) Patient Tobacco Use Status: Former Tobacco user Substance Use Type: Marijuana Course Course Course Narrative: RME, this is a rapid medical exam performed by Hipolito North please refer to primary provider for complete H&P- 38 year old female presents for evaluation of vomiting and abdominal pain. She reports that she left detox ([facility] in [place], [place]) yesterday AMA. She is detoxing from heroine. She reports being on methasdone 15mg and her last dose was yesterday morning. Plan for labs, ua Discharge Plan Discharge Prescriptions: No Action azelastine 137 mcg (0.1 %) aerosol,spray 2 spray intranasal BID fluoxetine 20 mg capsule 20 mg PO DAILY fluticasone propionate 50 mcg/actuation spray,suspension 2 spray intranasal DAILY riboflavin (vitamin B2) 400 mg tablet 400 mg PO DAILY magnesium oxide 400 mg magnesium tablet 400 mg PO DAILY haloperidol 1 mg tablet 1 mg PO Q8H PRN (Reason: nausea and vomiting) Qty: 10 0RF lorazepam [Ativan] 1 mg tablet 1 mg PO BID PRN (Reason: anxiety) Qty: 14 0RF ondansetron 4 mg tablet,disintegrating 4 mg PO Q6-8H PRN (Reason: nausea and vomiting) Qty: 7 0RF ibuprofen 600 mg tablet 600 mg PO Q6H PRN (Reason: pain) Qty: 20 0RF tramadol 50 mg tablet 50 mg PO Q6H PRN (Reason: severe pain (scale score 7-10)) Qty: 12 0RF promethazine 25 mg suppository 25 mg [place] Q6H PRN (Reason: nausea and vomiting) Qty: 12 0RF ondansetron 4 mg tablet,disintegrating 4 mg PO Q8H PRN (Reason: nausea and vomiting) Qty: 20 0RF lorazepam [Ativan] 1 mg tablet 1 mg PO BID PRN (Reason: anxiety) Qty: 14 0RF Print Language: Cam[place]
--- NOTE | 2023-11-09 12:15 | ECG_ITS ---
Test Reason : pain Blood Pressure : / mmHG Vent. Rate : 066 BPM Atrial Rate : 066 BPM P-R Int : 138 ms QRS Dur : 086 ms QT Int : 412 ms P-R-T Axes : 058 001 048 degrees QTc Int : 431 ms Normal sinus rhythm Normal ECG When compared with ECG of 15-SEP-2023 09:29, No significant change was found Referred By: Oswaldo North Electronically Signed By:Eligio Duong
[2023-11-09 12:30] LABS: MANUAL DIFF FLAG NO
[2023-11-09 12:33] LABS: Basophils Absolute Auto 0.1 X10*3/uL (0.0-0.2); Basophils Percent Auto 0.4 % (0-2); Eosinophils Percent Auto 0.3 % (0-4); Hematocrit 44.6 % (37.0-47.0); Hemoglobin 15.4 g/dl (12.0-16.0); Imm Gran Abs Auto 0.03 X10*3/uL (0.00-0.03); Imm Gran Pct Auto 0.2 % (0.0-0.4); Lymphocytes Absolute Auto 1.3 X10*3/uL (1.2-4.9); Lymphocytes Percent Auto 9.8 % (20-40); Mean Corpuscular HGB Conc 34.5 g/dl (31.0-35.0); Mean Corpuscular Hemoglobin 32.6 pg (27.0-33.0); Mean Corpuscular Volume 94.5 fL (80.0-98.0); Mean Platelet Volume 9.8 fL (9.4-12.3); Monocytes Absolute Auto 0.5 X10*3/uL (0.1-1.2); Monocytes Percent Auto 3.8 % (2-11); Neutrophils Absolute Auto 11.3 x10*3/uL (2.0-8.3); Neutrophils Percent Auto 85.5 % (45-73); Platelet Count 308 X10*3/uL (160-400); Red Blood Count 4.72 X10*6/uL (4.20-5.50); White Blood Count 13.2 X10*3/uL (4.8-10.8)
[2023-11-09 12:54] LABS: Alanine Aminotransferase 15 U/L (0-31); Albumin Level 4.4 g/dL (3.5-5.0); Alkaline Phosphatase 64 U/L (39-117); Anion Gap 12 (12-20); Aspartate Amino Transferase 15 U/L (5-31); Bilirubin Total 0.3 mg/dL (0.0-1.0); Blood Urea Nitrogen 7 mg/dL (9-16); Calcium 9.7 mg/dL (8.4-10.2); Carbon Dioxide 26 mmol/L (22-29); Chloride 105 mmol/L (96-108); Creatinine Clr Calc Pharmacy 80.1; Estimated Glomerular Filt Rate > 60; Ethanol < 10 mg/dL; Glucose Random 109 mg/dL (60-115); HCG Quantitative < 2 mIU/mL; Lipase 57 U/L (8-78); Potassium 4.3 mmol/L (3.3-5.1); Sodium 139 mmol/L (135-145); Total Protein 7.3 g/dL (6.5-8.0)
[2023-11-09 13:12] LABS: Influenza A PCR NEGATIVE (Negative); Influenza B PCR NEGATIVE (Negative); Resp Syncy Virus RNA Qual PCR NEGATIVE (Negative); SARS COV2 PCR INHOUSE NEGATIVE (Negative)
[2023-11-09] MEDS: Ondansetron ODT 4 MG TAB.RAPDIS TRANSLINGU (15:11)
--- NOTE | 2023-11-09 15:12 | PC.NURSE ---
Patient was found to be actively vomiting and dry heaving in main entrance of ED. Patient was brought into ambulance bay hallway. Reassessed by myself and Hipolito CUP TRIMMING MACHINE OPERATOR. Patient states that she is cold and was given a warm blanket. Zofran given for nausea. States that she is going through withdrawal and left AMA at Detox this morning without recieving methadone. Patient and her significant other state that they will stay longer now.
--- NOTE | 2023-11-09 16:28 | ED_ITS ---
HPI - Nausea/Vomiting/Diarrhea General Chief complaint: Nausea/Vomiting/Diarrhea Stated complaint: Left detox ama-vomiting dehydrated Time Seen by Provider: 11/09/23 16:20 Source: patient and family Mode of arrival: ambulatory Limitations: no limitations History of Present Illness ED Provider: Dr. Iram Holliday Related Data Home Medications ?Medication ?Instructions ?Recorded ?Confirmed azelastine 137 mcg (0.1 %) nasal 2 spray intranasal BID 07/28/22 07/28/22 spray fluoxetine 20 mg capsule 20 mg PO DAILY 07/28/22 07/28/22 fluticasone propionate 50 2 spray intranasal DAILY 07/28/22 07/28/22 mcg/actuation nasal spray,suspension magnesium oxide 400 mg PO DAILY 07/28/22 07/28/22 riboflavin (vitamin B2) 400 mg 400 mg PO DAILY 07/28/22 07/28/22 tablet Previous Rx's ?Medication ?Instructions ?Recorded haloperidol 1 mg tablet 1 mg PO Q8H PRN nausea and 07/30/22 vomiting #10 tabs ibuprofen 600 mg tablet 600 mg PO Q6H PRN pain #20 tabs 10/29/22 tramadol 50 mg tablet 50 mg PO Q6H PRN severe pain 10/29/22 (scale score 7-10) #12 tabs lorazepam 1 mg tablet (Ativan) 1 mg PO BID PRN anxiety #14 tabs 01/05/23 ondansetron 4 mg disintegrating 4 mg PO Q6-8H PRN nausea and 01/05/23 tablet vomiting #7 tabs ondansetron 4 mg disintegrating 4 mg PO Q8H PRN nausea and 01/07/23 tablet vomiting #20 tabs promethazine 25 mg rectal [address] Q6H PRN nausea and 01/07/23 suppository vomiting #12 ea lorazepam 1 mg tablet (Ativan) 1 mg PO BID PRN anxiety #14 tabs 01/08/23 clonidine HCl 0.2 mg tablet 0.2 mg PO TID PRN withdrawal 11/09/23 symptoms #14 tabs loperamide 2 mg capsule 2 mg PO Q4H PRN loose stool #20 11/09/23 caps lorazepam 1 mg tablet (Ativan) 1 mg PO TID PRN withdrawal 11/09/23 symptoms #6 tabs ondansetron 4 mg disintegrating 4 mg PO Q6H PRN nausea and 11/09/23 tablet vomiting #20 tabs Allergies Allergy/AdvReac Type Severity Reaction Status Date / Time No Known Allergies Allergy Verified 11/09/23 12:18 [facility] Past Medical History Medical History Alcohol use disorder Anxiety and depression Marijuana use, continuous Alcohol withdrawal Social History Social History Alcohol intake: unknown Comment: Report given by previous RN (Codi) Patient Tobacco Use Status: Former Tobacco user Smoked in Last 30 Days: No Use of substances other than those prescribed or required for medical reasons: Yes Substance Use Type: Opiates Substance Use Frequency: Daily Last Used Substance: Days (ago) Any prior treatment program specific to substance use: Yes Advance Directives: No Advance Directives Information Provided: No Patient : No Physical Exam 2 Vital Signs: Vital Signs: Last Vital Signs Temp 98.8 F 11/09/23 20:00 Pulse 94 11/09/23 20:00 Resp 23 H 11/09/23 20:00 BP 105/46 L 11/09/23 20:00 Pulse Ox 97 11/09/23 20:00 O2 Del Method Room Air 11/09/23 20:00 BMI result Body Mass Index 19.8 Medications Administered Discontinued Medications Generic Name Dose Route Start Last Admin Trade Name Freq PRN Reason Stop Dose Admin Clonidine HCl 0.2 mg 11/09/23 16:27 11/09/23 16:36 Clonidine Hcl 0.2 Mg Tablet PO 11/09/23 16:28 0.2 mg ONCE ONE Administration Protocol Diphenhydramine HCl 50 mg 11/09/23 16:47 11/09/23 16:52 Diphenhydramine Hcl 50 Mg/Ml Vial IVPUSH 11/09/23 16:48 50 mg ONCE ONE Administration Haloperidol Lactate 5 mg 11/09/23 16:47 11/09/23 16:51 Haloperidol Lactate 5 Mg/Ml Vial IM 11/09/23 16:48 5 mg STAT STA Administration Hydroxyzine HCl 50 mg 11/09/23 16:27 11/09/23 16:35 Hydroxyzine Hcl 50 Mg Tablet PO 11/09/23 16:28 50 mg ONCE ONE Administration Sodium Chloride 1,000 mls @ 999 mls/hr 11/09/23 16:27 07/09/24 18:03 Ns IVCONT 11/09/23 17:27 Infused .Q1H1M ONE Infusion Loperamide HCl 2 mg 11/09/23 16:27 11/09/23 16:35 Loperamide Hcl 2 Mg Capsule PO 11/09/23 16:28 2 mg ONCE ONE Administration Lorazepam 2 mg 11/09/23 16:47 11/09/23 16:52 Lorazepam 2 Mg/Ml Vial IVPUSH 11/09/23 16:48 2 mg ONCE ONE Administration Methadone HCl 10 mg 11/09/23 17:45 11/09/23 18:02 Methadone Hcl 20 Mg/2 Ml Oral.Conc PO 11/09/23 17:46 10 mg ONCE ONE Administration Ondansetron HCl 4 mg 11/09/23 15:08 11/09/23 15:11 Ondansetron Odt 4 Mg Tab.Rapdis TRANSLINGU 11/09/23 15:09 4 mg ONCE ONE Administration Ondansetron HCl 4 mg 11/09/23 16:27 11/09/23 16:34 Ondansetron Hcl 4 Mg/2 Ml Vial IVPUSH 11/09/23 16:28 4 mg ONCE ONE Administration Medical Decision Making Lab Data 11/09/23 12:26 11/09/23 12:26 Labs: Lab Results 11/09/23 11/09/23 11/09/23 Range/Units 12:23 12:26 18:24 WBC 13.2 H (4.8-10.8) X10*3/uL RBC 4.72 (4.20-5.50) X10*6/uL Hgb 15.4 (12.0-16.0) g/dl Hct 44.6 (37.0-47.0) % MCV 94.5 (80.0-98.0) fL MCH 32.6 (27.0-33.0) pg MCHC 34.5 (31.0-35.0) g/dl RDW 12.0 (11.0-16.0) % Plt Count 308 (160-400) X10*3/uL MPV 9.8 (9.4-12.3) fL Immature Gran % (Auto) 0.2 (0.0-0.4) % Neut % (Auto) 85.5 H (45-73) % Lymph % (Auto) 9.8 L (20-40) % [place] % (Auto) 3.8 (2-11) % Eos % (Auto) 0.3 (0-4) % Baso % (Auto) 0.4 (0-2) % Lymph # (Auto) 1.3 (1.2-4.9) X10*3/uL [place] # (Auto) 0.5 (0.1-1.2) X10*3/uL Eos # (Auto) 0.0 (0.0-0.4) X10*3/uL Baso # (Auto) 0.1 (0.0-0.2) X10*3/uL Abs Immat Gran (auto) 0.03 (0.00-0.03) X10*3/uL Absolute Neuts (auto) 11.3 H (2.0-8.3) x10*3/uL Absolute Nucleated RBC 0.000 (0.0-0.012) X10*3/uL Nucleated RBC % (auto) 0.0 (0.0-0.2) /100WBC Sodium 139 (135-145) mmol/L Potassium 4.3 D (3.3-5.1) mmol/L Chloride 105 (96-108) mmol/L Carbon Dioxide 26 (22-29) mmol/L Anion Gap 12 (12-20) BUN 7 L (9-16) mg/dL Creatinine 0.73 (0.5-1.4) mg/dL Estim Creat Clear Calc 80.1 Estimated GFR > 60 Random Glucose 109 (60-115) mg/dL Calcium 9.7 (8.4-10.2) mg/dL Total Bilirubin 0.3 (0.0-1.0) mg/dL AST 15 (5-31) U/L ALT 15 (0-31) U/L Alkaline Phosphatase 64 (39-117) U/L Total Protein 7.3 (6.5-8.0) g/dL Albumin 4.4 (3.5-5.0) g/dL Lipase 57 (8-78) U/L Beta HCG, Quant < 2 mIU/mL Urine Color Yellow Urine Appearance Cloudy Urine pH >= 9.0 (5.0-9.0) Ur Specific [place] 1.015 (1.005-1.025) Urine Protein Trace (Neg-Trace) mg/dL Urine Glucose (UA) Negative (Negative) mg/dL Urine Ketones Negative (Negative) mg/dL Urine Blood Negative (Negative) Urine Nitrite Negative (Negative) Ur Leukocyte Esterase Negative (Negative) Urine RBC 3-5 H (0-2) /HPF Urine WBC 0-5 (0-5) /HPF Ur Squamous Epith Cells 6-10 (0-2) /HPF Urine Bacteria 1+ (None Seen) Hyaline Casts 0-2 (0-2) /LPF Urine Opiates Screen Not Detected (Not Detect) Ur Buprenorphine Scrn Not Detected (Not Detect) ng/mL Ur Oxycodone Screen Not Detected (Not Detect) ng/mL Urine Methadone Screen Not Detected (Not Detect) ng/mL Urine Fentanyl Screen POSITIVE H (Not Detect) Ur Barbiturates Screen Not Detected (Not Detect) Ur Phencyclidine Scrn Not Detected (Not Detect) Ur Amphetamines Screen Not Detected (Not Detect) U Benzodiazepines Scrn Not Detected (Not Detect) Urine Cocaine Screen Not Detected (Not Detect) U Marijuana (THC) Screen POSITIVE H (Not Detect) Ethyl Alcohol < 10 mg/dL Influenza Type A (PCR) NEGATIVE (Negative) Influenza Type B (PCR) NEGATIVE (Negative) RSV RNA Qual (PCR) NEGATIVE (Negative) SARS-CoV-2 RNA (RT-PCR) NEGATIVE (Negative) Discharge Plan Discharge Clinical Impression: Methadone withdrawal Patient Disposition: Home, Self-Care Instructions: Opioid Withdrawal (ED) Additional Instructions: Please follow-up with your primary care physician tomorrow. If you have any worsening or new symptoms, please return to the emergency room or call 911 Prescriptions: New ondansetron 4 mg tablet,disintegrating 4 mg PO Q6H PRN (Reason: nausea and vomiting) Qty: 20 0RF clonidine HCl 0.2 mg tablet 0.2 mg PO TID PRN (Reason: withdrawal symptoms) Qty: 14 0RF loperamide 2 mg capsule 2 mg PO Q4H PRN (Reason: loose stool) Qty: 20 0RF Rx Instructions: administer after each loose stool until symptoms controlled; do not exceed 8 mg per 24 hrs lorazepam [Ativan] 1 mg tablet 1 mg PO TID PRN (Reason: withdrawal symptoms) Qty: 6 0RF No Action azelastine 137 mcg (0.1 %) aerosol,spray 2 spray intranasal BID fluoxetine 20 mg capsule 20 mg PO DAILY fluticasone propionate 50 mcg/actuation spray,suspension 2 spray intranasal DAILY riboflavin (vitamin B2) 400 mg tablet 400 mg PO DAILY magnesium oxide 400 mg magnesium tablet 400 mg PO DAILY haloperidol 1 mg tablet 1 mg PO Q8H PRN (Reason: nausea and vomiting) Qty: 10 0RF lorazepam [Ativan] 1 mg tablet 1 mg PO BID PRN (Reason: anxiety) Qty: 14 0RF ondansetron 4 mg tablet,disintegrating 4 mg PO Q6-8H PRN (Reason: nausea and vomiting) Qty: 7 0RF ibuprofen 600 mg tablet 600 mg PO Q6H PRN (Reason: pain) Qty: 20 0RF tramadol 50 mg tablet 50 mg PO Q6H PRN (Reason: severe pain (scale score 7-10)) Qty: 12 0RF promethazine 25 mg suppository [address] Q6H PRN (Reason: nausea and vomiting) Qty: 12 0RF ondansetron 4 mg tablet,disintegrating 4 mg PO Q8H PRN (Reason: nausea and vomiting) Qty: 20 0RF lorazepam [Ativan] 1 mg tablet 1 mg PO BID PRN (Reason: anxiety) Qty: 14 0RF Print Language: [place]
[2023-11-09] MEDS: ondansetron HCL 4 MG/2 ML VIAL IVPUSH (16:34)
[2023-11-09] MEDS: hydrOXYzine HCL 50 MG TABLET PO (16:35)
[2023-11-09] MEDS: Loperamide HCl 2 MG CAPSULE PO (16:35)
[2023-11-09] MEDS: cloNIDine HCL 0.2 MG TABLET PO (16:36)
[2023-11-09] MEDS: 0.9 % Sodium Chloride 1,000 ML 999 ML IVCONT (16:38)
--- NOTE | 2023-11-09 16:45 | PC.NURSE ---
patient family called this RN back into room, patient becoming more agitated in bed despite medication administration. states she almost pulled her IV out, IV remains intact, fluids still running, MD at bedside to evaluate, new orders to be placed per MD. patient able to be de escaleted.
[2023-11-09] MEDS: Haloperidol Lactate 5 MG/ML VIAL IM (16:51)
[2023-11-09] MEDS: diphenhydrAMINE HCL 50 MG/ML VIAL IVPUSH (16:52)
[2023-11-09] MEDS: LORazepam 2 MG/ML VIAL IVPUSH (16:52)
--- NOTE | 2023-11-09 17:31 | PC.NURSE ---
this RN called the [facility] [place], [place] Substance abuse unit at [facility], spoke with Yue power RN, states patient received 15mg of methadone yesterday 11/08/2023 at 0815. she was scheduled to have a taper of 10m today and 5mg tomorrow. made aware of methadone dosing
--- NOTE | 2023-11-09 17:35 | PC.NURSE ---
late charting due to patient care, patient arrives ambulatory through external triage, states she was in a detox program yesterday but left due to an issue with HIPAA patient states she was in treatment for heroin addiction and wants to get treatment however today she has been unable to stop vomiting and states her stomach is having spasms patient complaining of 10/10 stomach pain and appears uncomfortable to this RN, patient states she was started on a methadone taper, methadone taper confirmed by this rn, patient initially stating she does not want to do the methadone taper,however due to increasing discomfort she states she would be willing to consider it if she is not getting any better. patient placed on insurance agents supervisor, medicate per JUL. currently resting comfortably on stretcher in NAD. respirations even and unlabored, bowel sounds present in all four quadrants, abdomen soft, tender to palpation, patient NSR on insurance agents supervisor.
[2023-11-09] MEDS: methADONE HCl 20 MG/2 ML ORAL.CONC 10 MG PO (18:02)
[2023-11-09 18:32] LABS: Appearance Urine Cloudy; Color Urine Yellow; Glucose Urine UA Negative (Negative); Leukocyte Esterase Urine Negative (Negative); Nitrite Urine Negative (Negative); PH >= 9.0 (5.0-9.0); Specific Gravity - Urine 1.015 (1.005-1.025); Urine Blood Negative (Negative); Urine Ketones Negative (Negative); Urine Protein Trace mg/dL (Neg-Trace)
[2023-11-09 18:41] LABS: Amphetamine Screen Urine Not Detected (Not Detect); Barbiturates, Urine Not Detected (Not Detect); Benzodiazepines Screen Urine Not Detected (Not Detect); Buprenorphine Scr Not Detected (Not Detect); Cannabinoid Screen Urine POSITIVE (Not Detect); Cocaine Screen Urine Not Detected (Not Detect); Fentanyl, urine POSITIVE (Not Detect); Methadone Screen, Urine Not Detected (Not Detect); Opiate Screen Urine Not Detected (Not Detect); Oxycodone Screen Urine Not Detected (Not Detect); Phencyclidine Screen Urine Not Detected (Not Detect)
[2023-11-09 19:31] LABS: Bacteria Urine 1+ (None Seen); Hyaline Casts Urine 0-2 /LPF (0-2); WBC Urine 0-5 /HPF (0-5)
== END 2023-11-09 21:22 | disposition home or self-care (01) ==
PROVIDERS: Physician Assistant; Emergency Provider Emergency Medicine
DX: F11.23 Opioid dependence with withdrawal (principal); R11.10 Vomiting, unspecified; R10.9 Unspecified abdominal pain; Z79.899 Other long term (current) drug therapy; Z03.818 Encounter for observation for suspected exposure to other biological agents ruled out
CPT/HCPCS: 0241U; 80053; 80307; 81001; 83690; 84702; 85025; 93005; 96361; 96372; 96374; 96375; 99284; 99285; J1200; J1630; J2060; J2405

== ENCOUNTER → 2023-11-09 12:15 | Outpatient (BNV) | payer SELFPAY | PROVIDERS: Visit Provider Internal Medicine Cardiovascular Disease | DX: R52 Pain, unspecified (principal) | CPT/HCPCS: 93010 ==

== ENCOUNTER 2023-11-11 02:32 | Emergency (ER) | payer OTHER, SELFPAY ==
[2023-11-11 02:35] VITALS: BP 137/96; PULSE 63; RESP 16; TEMP 36.9; O2SAT 100; BMI 21.7
[2023-11-11 07:20] LABS: MANUAL DIFF FLAG NO
[2023-11-11 07:21] LABS: Basophils Absolute Auto 0.1 X10*3/uL (0.0-0.2); Basophils Percent Auto 0.4 % (0-2); Hematocrit 40.9 % (37.0-47.0); Hemoglobin 14.5 g/dl (12.0-16.0); Imm Gran Abs Auto 0.03 X10*3/uL (0.00-0.03); Imm Gran Pct Auto 0.2 % (0.0-0.4); Lymphocytes Absolute Auto 1.3 X10*3/uL (1.2-4.9); Lymphocytes Percent Auto 10.4 % (20-40); Mean Corpuscular HGB Conc 35.5 g/dl (31.0-35.0); Mean Corpuscular Hemoglobin 32.7 pg (27.0-33.0); Mean Corpuscular Volume 92.1 fL (80.0-98.0); Mean Platelet Volume 10.1 fL (9.4-12.3); Monocytes Absolute Auto 0.4 X10*3/uL (0.1-1.2); Monocytes Percent Auto 3.1 % (2-11); Neutrophils Absolute Auto 10.9 x10*3/uL (2.0-8.3); Neutrophils Percent Auto 85.9 % (45-73); Platelet Count 289 X10*3/uL (160-400); Red Blood Count 4.44 X10*6/uL (4.20-5.50); Red Cell Distribution Width 11.9 % (11.0-16.0); White Blood Count 12.7 X10*3/uL (4.8-10.8)
[2023-11-11 07:36] LABS: Alanine Aminotransferase 17 U/L (0-31); Albumin Level 4.2 g/dL (3.5-5.0); Alkaline Phosphatase 60 U/L (39-117); Anion Gap 14 (12-20); Aspartate Amino Transferase 19 U/L (5-31); Bilirubin Direct 0.1 mg/dL (0.0-0.5); Bilirubin Total 0.3 mg/dL (0.0-1.0); Blood Urea Nitrogen 8 mg/dL (9-16); Calcium 9.5 mg/dL (8.4-10.2); Carbon Dioxide 23 mmol/L (22-29); Chloride 105 mmol/L (96-108); Creatinine Clr Calc Pharmacy 78.2; Estimated Glomerular Filt Rate > 60; Glucose Random 120 mg/dL (60-115); Potassium 3.6 mmol/L (3.3-5.1); Sodium 138 mmol/L (135-145)
[2023-11-11 08:23] LABS: Appearance Urine Turbid; Color Urine Yellow; Glucose Urine UA Negative (Negative); Leukocyte Esterase Urine Negative (Negative); Nitrite Urine Negative (Negative); PH 7.5 (5.0-9.0); UMIC TRIGGER UACC YES; Urine Blood Trace (Negative); Urine Ketones Negative (Negative); Urine Protein Negative (Neg-Trace)
[2023-11-11 08:26] LABS: Bacteria Urine 4+ (None Seen); Hyaline Casts Urine 0-2 /LPF (0-2); RBC Urine 0-2 /HPF (0-2); Squamous Epithelial Cell Urine >20 /HPF (0-2); UPreg QC Valid YES; Urine Pregnancy NEGATIVE (NEGATIVE); WBC Urine 0-5 /HPF (0-5)
--- NOTE | 2023-11-11 08:33 | ED.GENADULT ---
HPI - General Adult General Chief complaint: General Medical Stated complaint: stomach pain Time Seen by Provider: 11/11/23 08:04 Source: patient Mode of arrival: ambulatory Limitations: no limitations History of Present Illness ED Provider: BOBBY HPI narrative: 38 yo female tapering off methadone hx of anxiety and anxiety triggers muscle spasms of stomach and vomiting who states she doesn't want to do methadone anymore. She notes she just needs haldol as it helps when this happens and she has anxiety. At this time no fevers, diarrhea or any other acute change from baseline. No food exposures or travel MD complaint: BOBBY Onset (ago): hour(s) (2) Location: abdomen Radiation: non-radiation Severity: moderate Quality: other (spasms) Pain Consistency: constant Relieving factors: none Exacerbating factors: none Associated symptoms: loss of appetite, malaise, nausea/vomiting and other (anxiety) Related Data Home Medications ?Medication ?Instructions ?Recorded ?Confirmed azelastine 137 mcg (0.1 %) nasal 2 spray intranasal BID 07/28/22 07/28/22 spray fluoxetine 20 mg capsule 20 mg PO DAILY 07/28/22 07/28/22 fluticasone propionate 50 2 spray intranasal DAILY 07/28/22 07/28/22 mcg/actuation nasal spray,suspension magnesium oxide 400 mg PO DAILY 07/28/22 07/28/22 riboflavin (vitamin B2) 400 mg 400 mg PO DAILY 07/28/22 07/28/22 tablet Previous Rx's ?Medication ?Instructions ?Recorded haloperidol 1 mg tablet 1 mg PO Q8H PRN nausea and 07/30/22 vomiting #10 tabs ibuprofen 600 mg tablet 600 mg PO Q6H PRN pain #20 tabs 10/29/22 tramadol 50 mg tablet 50 mg PO Q6H PRN severe pain 10/29/22 (scale score 7-10) #12 tabs lorazepam 1 mg tablet (Ativan) 1 mg PO BID PRN anxiety #14 tabs 01/05/23 ondansetron 4 mg disintegrating 4 mg PO Q6-8H PRN nausea and 01/05/23 tablet vomiting #7 tabs ondansetron 4 mg disintegrating 4 mg PO Q8H PRN nausea and 01/07/23 tablet vomiting #20 tabs promethazine 25 mg rectal 25 mg DE Q6H PRN nausea and 01/07/23 suppository vomiting #12 ea lorazepam 1 mg tablet (Ativan) 1 mg PO BID PRN anxiety #14 tabs 01/08/23 clonidine HCl 0.2 mg tablet 0.2 mg PO TID PRN withdrawal 11/09/23 symptoms #14 tabs loperamide 2 mg capsule 2 mg PO Q4H PRN loose stool #20 11/09/23 caps lorazepam 1 mg tablet (Ativan) 1 mg PO TID PRN withdrawal 11/09/23 symptoms #6 tabs ondansetron 4 mg disintegrating 4 mg PO Q6H PRN nausea and 11/09/23 tablet vomiting #20 tabs haloperidol 1 mg tablet 1 mg PO BID PRN nausea and 11/11/23 vomiting #14 tabs lorazepam 1 mg tablet (Ativan) 1 mg PO BID PRN anxiety #6 tabs 11/11/23 Allergies Allergy/AdvReac Type Severity Reaction Status Date / Time No Known Allergies Allergy Verified 11/11/23 02:40 Review of Systems Review of Systems: Constitutional : No Weight loss, No Fever, No Chills ENT/Mouth : No sore throat, No Rhinorrhea Eyes: No Swelling, No Redness Cardiovascular : No Chest Pain, No SOB, NoEdema Respiratory : No Cough, No Sputum, No Wheezing Gastrointestinal : Positive Nausea, Positive Vomiting, no Diarrhea, positive abdominal Pain, No Hematochezia, No Melena Genitourinary : No Dysuria, No Urinary Frequency, No Hematuria, No Urgency Musculoskeletal : No joint pain, No Myalgias, No Joint Swelling Skin : No Skin Lesions, No rash Neuro : No Weakness, No Numbness, No Dizziness, No Headache Psych : No Anxiety/Panic, No Depression All other systems reviewed and are negative. [facility] Past Medical History Attestation statement: The following information was validated with the patient. Source: old records reviewed Medical History Alcohol use disorder Anxiety and depression Marijuana use, continuous Alcohol withdrawal Social History Social History Alcohol intake: unknown Comment: Report given by previous RN (Codi) Patient Tobacco Use Status: Former Tobacco user Substance Use Type: Opiates Advance Directives: No Do you have a plan to hurt others: No Plan Physical Exam ED Vital Signs: Vital Signs - 24 hr 11/11/23 02:35 11/11/23 10:07 11/11/23 11:30 Temperature 98.5 F 99.2 F 99.2 F Pulse Rate 63 99 99 Respiratory Rate 16 18 18 Blood Pressure 137/96 H 123/76 123/76 Pulse Oximetry 100 98 98 Oxygen Delivery Method Room Air Room Air Room Air BMI result Body Mass Index 21.7 Appearance: Alert. Oriented X3. No acute distress. anxious dry heaving asking for haldol Eyes: Pupils equal, round and reactive to light. ENT: Pharynx normal. Neck: Normal inspection. Neck supple. CVS: Normal heart rate and rhythm. Pulses normal. Respiratory: No respiratory distress. Breath sounds normal. Abdomen: Soft and nontender. Skin: Skin warm and dry. Normal skin color. Normal skin turgor. Extremities: No lower extremity edema. Neuro: Oriented X 3. No motor deficit. No sensory deficit. Course Course Course Narrative: c/o tongue feeling fat but there was no swelling no angioedema given IV benadryl then got up and asked to leave no signs of allergy clinically no drooling or change in voice Medications Administered Discontinued Medications Generic Name Dose Route Start Last Admin Trade Name Freq PRN Reason Stop Dose Admin Diphenhydramine HCl 25 mg 11/11/23 10:59 11/11/23 11:09 Diphenhydramine Hcl 50 Mg/Ml Vial IVPUSH 11/11/23 11:00 25 mg ONCE ONE Administration Droperidol 1.25 mg 11/11/23 08:16 11/11/23 08:44 Droperidol 5 Mg/2 Ml Vial IVPUSH 11/11/23 08:17 1.25 mg ONCE ONE Administration Magnesium Sulfate 2 gm in 50 mls @ 150 mls/hr 11/11/23 08:16 11/11/23 09:05 Magnesium Sulfate/H2o IV 11/11/23 08:35 Infused ONCE ONE Infusion Sodium Chloride 1,000 mls @ 999 mls/hr 11/11/23 08:16 11/11/23 11:08 Ns IV 11/11/23 09:16 Infused .Q1H1M ONE Infusion Lorazepam 0.5 mg 11/11/23 09:59 11/11/23 10:05 Lorazepam 2 Mg/Ml Vial IVPUSH 11/11/23 10:00 0.5 mg STAT STA Administration Medical Decision Making Medical Decision Making [facility] Narrative: 38 yo female with anxiety, depression, opiate use disorder currently tapering off methadone at this time presents with what sounds like anxiety and cyclical vomiting states she has this all the time asking for haldol - at this time will obtain basic labs and provide fluids and droperidol given hx and repeat event doubt GB pathology or appendicitis. Differential Diagnosis Differential Diagnoses: The differential diagnosis associated with the presentation includes anxiety, cyclical vomiting, withdrawal - does not want anymore methadone Admission/Observation Consideration of admission/observation: Escalation of care including admission/observation considered feels better stable for DC Lab Data [facility] Lab Attestation statement: I reviewed the patient's lab results. 11/11/23 07:14 11/11/23 07:14 Labs: Lab Results 11/11/23 11/11/23 Range/Units 07:14 08:13 WBC 12.7 H (4.8-10.8) X10*3/uL RBC 4.44 (4.20-5.50) X10*6/uL Hgb 14.5 (12.0-16.0) g/dl Hct 40.9 (37.0-47.0) % MCV 92.1 (80.0-98.0) fL MCH 32.7 (27.0-33.0) pg MCHC 35.5 H (31.0-35.0) g/dl RDW 11.9 (11.0-16.0) % Plt Count 289 (160-400) X10*3/uL MPV 10.1 (9.4-12.3) fL Immature Gran % (Auto) 0.2 (0.0-0.4) % Neut % (Auto) 85.9 H (45-73) % Lymph % (Auto) 10.4 L (20-40) % [place] % (Auto) 3.1 (2-11) % Eos % (Auto) 0.0 (0-4) % Baso % (Auto) 0.4 (0-2) % Lymph # (Auto) 1.3 (1.2-4.9) X10*3/uL [place] # (Auto) 0.4 (0.1-1.2) X10*3/uL Eos # (Auto) 0.0 (0.0-0.4) X10*3/uL Baso # (Auto) 0.1 (0.0-0.2) X10*3/uL Abs Immat Gran (auto) 0.03 (0.00-0.03) X10*3/uL Absolute Neuts (auto) 10.9 H (2.0-8.3) x10*3/uL Absolute Nucleated RBC 0.000 (0.0-0.012) X10*3/uL Nucleated RBC % (auto) 0.0 (0.0-0.2) /100WBC Sodium 138 (135-145) mmol/L Potassium 3.6 (3.3-5.1) mmol/L Chloride 105 (96-108) mmol/L Carbon Dioxide 23 (22-29) mmol/L Anion Gap 14 (12-20) BUN 8 L (9-16) mg/dL Creatinine 0.75 (0.5-1.4) mg/dL Estim Creat Clear Calc 78.2 Estimated GFR > 60 Random Glucose 120 H (60-115) mg/dL Calcium 9.5 (8.4-10.2) mg/dL Total Bilirubin 0.3 (0.0-1.0) mg/dL Direct Bilirubin 0.1 (0.0-0.5) mg/dL AST 19 (5-31) U/L ALT 17 (0-31) U/L Alkaline Phosphatase 60 (39-117) U/L Total Protein 7.0 (6.5-8.0) g/dL Albumin 4.2 (3.5-5.0) g/dL Beta HCG, Quant < 2 mIU/mL Urine Color Yellow Urine Appearance Turbid Urine pH 7.5 (5.0-9.0) Ur Specific [place] 1.010 (1.005-1.025) Urine Protein Negative (Neg-Trace) mg/dL Urine Glucose (UA) Negative (Negative) mg/dL Urine Ketones Negative (Negative) mg/dL Urine Blood Trace H (Negative) Urine Nitrite Negative (Negative) Ur Leukocyte Esterase Negative (Negative) Urine RBC 0-2 (0-2) /HPF Urine WBC 0-5 (0-5) /HPF Ur Squamous Epith Cells >20 (0-2) /HPF Urine Bacteria 4+ (None Seen) Hyaline Casts 0-2 (0-2) /LPF Urine Test NEGATIVE (NEGATIVE) Independent Historian Clinical information obtained from an independent historian. History obtained from or confirmed by: Friend External Record Review External record reviewed: Inpatient record Prescription Management I considered prescription management with: Other Discharge Plan Discharge Clinical Impression: Cyclical vomiting Patient Disposition: Home, Self-Care Instructions: Acute Nausea and Vomiting (ED) Additional Instructions: labs reassuring bland diet and drink plenty of fluids return for any worsening symptoms or concerns Prescriptions: New haloperidol 1 mg tablet 1 mg PO BID PRN (Reason: nausea and vomiting) Qty: 14 0RF lorazepam [Ativan] 1 mg tablet 1 mg PO BID PRN (Reason: anxiety) Qty: 6 0RF No Action azelastine 137 mcg (0.1 %) aerosol,spray 2 spray intranasal BID fluoxetine 20 mg capsule 20 mg PO DAILY fluticasone propionate 50 mcg/actuation spray,suspension 2 spray intranasal DAILY riboflavin (vitamin B2) 400 mg tablet 400 mg PO DAILY magnesium oxide 400 mg magnesium tablet 400 mg PO DAILY haloperidol 1 mg tablet 1 mg PO Q8H PRN (Reason: nausea and vomiting) Qty: 10 0RF lorazepam [Ativan] 1 mg tablet 1 mg PO BID PRN (Reason: anxiety) Qty: 14 0RF ondansetron 4 mg tablet,disintegrating 4 mg PO Q6-8H PRN (Reason: nausea and vomiting) Qty: 7 0RF ondansetron 4 mg tablet,disintegrating 4 mg PO Q6H PRN (Reason: nausea and vomiting) Qty: 20 0RF clonidine HCl 0.2 mg tablet 0.2 mg PO TID PRN (Reason: withdrawal symptoms) Qty: 14 0RF loperamide 2 mg capsule 2 mg PO Q4H PRN (Reason: loose stool) Qty: 20 0RF Rx Instructions: administer after each loose stool until symptoms controlled; do not exceed 8 mg per 24 hrs lorazepam [Ativan] 1 mg tablet 1 mg PO TID PRN (Reason: withdrawal symptoms) Qty: 6 0RF ibuprofen 600 mg tablet 600 mg PO Q6H PRN (Reason: pain) Qty: 20 0RF tramadol 50 mg tablet 50 mg PO Q6H PRN (Reason: severe pain (scale score 7-10)) Qty: 12 0RF promethazine 25 mg suppository 25 mg DE Q6H PRN (Reason: nausea and vomiting) Qty: 12 0RF ondansetron 4 mg tablet,disintegrating 4 mg PO Q8H PRN (Reason: nausea and vomiting) Qty: 20 0RF lorazepam [Ativan] 1 mg tablet 1 mg PO BID PRN (Reason: anxiety) Qty: 14 0RF Interventions: ED Discharge Assessment Last Done: 11/11/23 11:30 Discharge Date/Time: 11/11/23 11:30 Print Language: Telugu
[2023-11-11 08:39] LABS: HCG Quantitative < 2 mIU/mL
[2023-11-11] MEDS: droPERidol 5 MG/2 ML VIAL 1.25 MG IVPUSH (08:44)
[2023-11-11] MEDS: Magnesium Sulfate/H2O 2 GM/50 ML PIGGYBACK IV (08:45)
[2023-11-11] MEDS: 0.9 % Sodium Chloride 1,000 ML 999 ML IV (08:45)
--- NOTE | 2023-11-11 08:50 | PC.NURSE ---
pt a&ox3, pt tearful and requesting medication, pt iv previously inserted by charge nurse, IVF hung per order, pt medicated per order, call maldonado within reach, will continue to monitor
[2023-11-11] MEDS: LORazepam 2 MG/ML VIAL 0.5 MG IVPUSH (10:05)
[2023-11-11 10:07] VITALS: BP 123/76; PULSE 99; RESP 18; TEMP 37.3; O2SAT 98
--- NOTE | 2023-11-11 10:09 | PC.NURSE ---
patient a&ox3, vss, pt stating her tongue feels swollen, this nurse looked at pts tongue which looks of normal size, pt tearful stating I dont feel well , provider was notified, ativan ordered and administered to pt, IVF continue to run slowly- pt educated to try and keep arm straight to allow fluids to infuse. call maldonado within reach, will continue to monitor
--- NOTE | 2023-11-11 11:08 | PC.NURSE ---
pt again feeling as if her tongue is swollen, this nurse checked pts mouth which it is not notably swollen, provider notified, pt to be medicated with benadryl for pt comfort, provider to come see patient as well
[2023-11-11] MEDS: diphenhydrAMINE HCL 50 MG/ML VIAL 25 MG IVPUSH (11:09)
--- NOTE | 2023-11-11 11:28 | PC.NURSE ---
pt pulled out her IV access and stated she was ready to leave. pts significant other stated their uber was outside waiting, pt was given discharge papers by emc provider and discharged ambulating with steady gait.
[2023-11-11 11:30] VITALS: BP 123/76; PULSE 99; RESP 18; TEMP 37.3; O2SAT 98
== END 2023-11-11 11:30 | disposition home or self-care (01) ==
PROVIDERS: Physician Assistant Medical; Emergency Provider Emergency Medicine
DX: R11.15 Cyclical vomiting syndrome unrelated to migraine (principal); R11.2 Nausea with vomiting, unspecified; R10.9 Unspecified abdominal pain; F41.9 Anxiety disorder, unspecified; F32.A Depression, unspecified; F11.20 Opioid dependence, uncomplicated; Z79.899 Other long term (current) drug therapy
CPT/HCPCS: 36415; 80048; 80076; 81001; 81025; 84702; 85025; 96361; 96365; 96375; 99284; J1200; J1790; J2060; J3475

== ENCOUNTER 2023-11-13 05:11 | Emergency (ER) | payer OTHER, SELFPAY ==
--- NOTE | ~2023-11-13 | CT_ITS ---
EXAMINATION: CT ABDOMEN AND PELVIS WITHOUT CONTRAST CLINICAL INFORMATION: Abdominal pain COMPARISON: 07/28/2022 TECHNIQUE: Multidetector volumetric imaging was performed from the superior aspect of the liver through the pubic symphysis. Sagittal and coronal reformatted images were obtained on the technologist's workstation. This CT examination was performed using dose optimization techniques as appropriate, variously including the following: *Automated exposure control *Adjustment of mA and/or kV according to patient size (this includes techniques or standardized protocols for targeted exams where dose is matched to indication/reason for exam; i.e. extremities or head) *Use of iterative reconstruction technique DLP: 285 mGy-cm FINDINGS: LUNG BASES: The visualized lung bases are unremarkable. LIVER, GALLBLADDER, AND BILIARY TREE: The liver is normal in size, shape, and attenuation. No focal hepatic lesion or biliary ductal dilatation is present. The gallbladder is unremarkable with no evidence of radiopaque gallstones, gallbladder wall thickening, or obvious pericholecystic inflammatory changes. PANCREAS: Unremarkable. SPLEEN: Unremarkable. ADRENAL GLANDS: Unremarkable. KIDNEYS AND URETERS: There are multiple bilateral renal calculi again noted. There is a 3.5 mm calculus at the left ureteropelvic junction, there is mild prominence of the left collecting system without hydronephrosis BLADDER: No bladder calculi. GASTROINTESTINAL TRACT: The small and large bowel are unremarkable. The appendix is unremarkable. ABDOMINAL WALL: No significant hernia is appreciated. LYMPH NODES: Normal. VASCULAR: Unremarkable. PELVIC VISCERA: Unremarkable. OSSEOUS STRUCTURES: Unremarkable. CT/CT abdomen pelvis wo IV con IMPRESSION: 1. There is a 3.5 mm calculus at the left ureteropelvic junction. There is mild prominence of the left collecting system without hydronephrosis. 2. Multiple bilateral renal calculi. Fleischner guidelines were followed.
[2023-11-13 05:18] VITALS: BP 132/105; PULSE 77; RESP 18; TEMP 37.1; O2SAT 100; BMI 21.3
[2023-11-13 05:34] LABS: Basophils Absolute Auto 0.1 X10*3/uL (0.0-0.2); Basophils Percent Auto 0.5 % (0-2); Hematocrit 41.6 % (37.0-47.0); Hemoglobin 15.1 g/dl (12.0-16.0); Imm Gran Abs Auto 0.03 X10*3/uL (0.00-0.03); Imm Gran Pct Auto 0.3 % (0.0-0.4); Lymphocytes Percent Auto 16.8 % (20-40); MANUAL DIFF FLAG NO; Mean Corpuscular HGB Conc 36.3 g/dl (31.0-35.0); Mean Corpuscular Hemoglobin 32.7 pg (27.0-33.0); Mean Platelet Volume 9.6 fL (9.4-12.3); Monocytes Absolute Auto 0.9 X10*3/uL (0.1-1.2); Monocytes Percent Auto 7.3 % (2-11); Neutrophils Absolute Auto 8.9 x10*3/uL (2.0-8.3); Neutrophils Percent Auto 75.1 % (45-73); Platelet Count 340 X10*3/uL (160-400); Red Blood Count 4.62 X10*6/uL (4.20-5.50); Red Cell Distribution Width 11.9 % (11.0-16.0); White Blood Count 11.8 X10*3/uL (4.8-10.8)
[2023-11-13 05:54] LABS: Alanine Aminotransferase 19 U/L (0-31); Albumin Level 4.5 g/dL (3.5-5.0); Alkaline Phosphatase 64 U/L (39-117); Anion Gap 14 (12-20); Aspartate Amino Transferase 14 U/L (5-31); Bilirubin Total 0.4 mg/dL (0.0-1.0); Blood Urea Nitrogen 9 mg/dL (9-16); Calcium 10.3 mg/dL (8.4-10.2); Carbon Dioxide 26 mmol/L (22-29); Chloride 105 mmol/L (96-108); Creatinine Clr Calc Pharmacy 74.2; Estimated Glomerular Filt Rate > 60; Glucose Random 127 mg/dL (60-115); Lipase 23 U/L (8-78); Potassium 3.6 mmol/L (3.3-5.1); Sodium 141 mmol/L (135-145); Total Protein 7.4 g/dL (6.5-8.0)
[2023-11-13 05:56] VITALS: BP 138/99; PULSE 69; RESP 14; TEMP 36.9; O2SAT 100
[2023-11-13 05:56] LABS: HCG Quantitative < 2 mIU/mL
--- NOTE | 2023-11-13 06:03 | PC.NURSE ---
pt states she has been vomiting, rajani yesterday, c/o of n/v/d, and abd pain. Pt states she quit drinking and using herion 14 days ago. She was just in the ER, this week. Pt was given haldol to take, and it is not working.
[2023-11-13 06:32] LABS: Appearance Urine Cloudy; Color Urine Yellow; Glucose Urine UA Negative (Negative); Leukocyte Esterase Urine Trace (Negative); Nitrite Urine Negative (Negative); PH 6.5 (5.0-9.0); Specific Gravity - Urine 1.015 (1.005-1.025); UMIC TRIGGER UACC YES; Urine Blood Trace (Negative); Urine Ketones Negative (Negative); Urine Protein Negative (Neg-Trace)
[2023-11-13 06:37] LABS: Bacteria Urine 4+ (None Seen); UACC Culture Trigger YES
--- NOTE | 2023-11-13 08:02 | ED.ABDPAIN ---
HPI - Abdominal Pain General Chief Complaint: Abdominal Pain Stated Complaint: vomiting Time Seen by Provider: 11/13/23 08:02 Source: patient Mode of arrival: ambulatory Limitations: no limitations History of Present Illness ED Provider: Tonya LEY HPI narrative: 38-year-old female history of alcohol use disorder, anxiety, depression, marijuana use, alcohol withdrawal, cyclic vomiting presenting to the emergency department with anxiety, stomach ? spasms ?, nausea, vomiting patient reports that anxiety typically causes this. She was seen here yesterday given p.o. Haldol however it did not help, she reports that she had an allergic reaction to it with tingling and swelling to her tongue. She is requesting to get Haldol through the IV as she feels like it may help. Patient denies drugs, alcohol, tobacco use. Does not think she is . Per nursing note patient was self inducing vomiting while in triage. Patient denies fevers, chills, changes in bowel habits or urinary habits, no new food exposures or travel. Related Data Home Medications ?Medication ?Instructions ?Recorded ?Confirmed azelastine 137 mcg (0.1 %) nasal 2 spray intranasal BID 07/28/22 07/28/22 spray fluoxetine 20 mg capsule 20 mg PO DAILY 07/28/22 07/28/22 fluticasone propionate 50 2 spray intranasal DAILY 07/28/22 07/28/22 mcg/actuation nasal spray,suspension magnesium oxide 400 mg PO DAILY 07/28/22 07/28/22 riboflavin (vitamin B2) 400 mg 400 mg PO DAILY 07/28/22 07/28/22 tablet Previous Rx's ?Medication ?Instructions ?Recorded haloperidol 1 mg tablet 1 mg PO Q8H PRN nausea and 07/30/22 vomiting #10 tabs ibuprofen 600 mg tablet 600 mg PO Q6H PRN pain #20 tabs 10/29/22 tramadol 50 mg tablet 50 mg PO Q6H PRN severe pain 10/29/22 (scale score 7-10) #12 tabs lorazepam 1 mg tablet (Ativan) 1 mg PO BID PRN anxiety #14 tabs 01/05/23 ondansetron 4 mg disintegrating 4 mg PO Q6-8H PRN nausea and 01/05/23 tablet vomiting #7 tabs ondansetron 4 mg disintegrating 4 mg PO Q8H PRN nausea and 01/07/23 tablet vomiting #20 tabs promethazine 25 mg rectal 25 mg TX Q6H PRN nausea and 01/07/23 suppository vomiting #12 ea lorazepam 1 mg tablet (Ativan) 1 mg PO BID PRN anxiety #14 tabs 01/08/23 clonidine HCl 0.2 mg tablet 0.2 mg PO TID PRN withdrawal 11/09/23 symptoms #14 tabs loperamide 2 mg capsule 2 mg PO Q4H PRN loose stool #20 11/09/23 caps lorazepam 1 mg tablet (Ativan) 1 mg PO TID PRN withdrawal 11/09/23 symptoms #6 tabs ondansetron 4 mg disintegrating 4 mg PO Q6H PRN nausea and 11/09/23 tablet vomiting #20 tabs haloperidol 1 mg tablet 1 mg PO BID PRN nausea and 11/11/23 vomiting #14 tabs lorazepam 1 mg tablet (Ativan) 1 mg PO BID PRN anxiety #6 tabs 11/11/23 nitrofurantoin 100 mg PO BID 5 days #10 caps 11/13/23 monohydrate/macrocrystals 100 mg capsule (Macrobid) ondansetron HCl 4 mg tablet 4 mg PO Q8H PRN nausea and 11/13/23 vomiting #14 tabs Allergies Allergy/AdvReac Type Severity Reaction Status Date / Time droperidol AdvReac Swelling Verified 11/13/23 06:10 Review of Systems Review of Systems Yes all other systems are reviewed and are negative PMFSH Past Medical History Attestation statement: The following information was validated with the patient. Source: old records reviewed and nursing notes reviewed Medical History Alcohol use disorder Anxiety and depression Marijuana use, continuous Alcohol withdrawal Social History Social History Alcohol intake: former Comment: Report given by previous RN (Codi) Patient Tobacco Use Status: Former Tobacco user Smoked in Last 30 Days: Yes Use of substances other than those prescribed or required for medical reasons: Yes Substance Use Type: Heroin Substance Use Frequency: Chronic Longstanding Last Used Substance: Days (ago) Any prior treatment program specific to substance use: No Advance Directives: No Advance Directives Information Provided: Yes Patient : No Physical Exam ED Vital Signs: Vital Signs - 24 hr 11/13/23 05:18 11/13/23 05:56 11/13/23 08:20 Temperature 98.7 F 98.5 F Pulse Rate 77 69 89 Respiratory Rate 18 14 17 Blood Pressure 132/105 H 138/99 H 121/90 H Pulse Oximetry 100 100 98 Oxygen Delivery Method Room Air Room Air Room Air BMI result Body Mass Index 21.3 vss Appearance: Alert.? Oriented X3.? No acute distress.? Head: Normocephalic, atraumatic, no step-offs or deformities Eyes: Pupils equal, round and reactive to light.? ENT: Pharynx normal.? Neck: Normal inspection.? Neck supple.? CVS: Normal heart rate and rhythm.? Pulses normal.? Respiratory: No respiratory distress.? Breath sounds normal.? Abdomen: Soft and nontender.? Skin: Skin warm and dry.? Normal skin color.? Normal skin turgor.? Extremities: No lower extremity edema.? No calf ttp. 5/5 strength to bilateral upper and lower extremities Neuro: Oriented X 3.? No motor deficit.? No sensory deficit. CN 2-12 intact Course Reevaluation(s) Reevaluation #1: CBC with slight leukocytosis 8.1 with no shift. Chemistry with no acute findings requiring intervention she does however have slight hypercalcemia. HCG negative. UA with positive blood, leukocyte esterases, 4+ bacteria. Will give p.o. antibiotics for home. CT abdomen and pelvis with a 3.5 mm calculus in the left UPJ, without hydronephrosis. There are also multiple bilateral renal calculi. Time: 09:14 Reevaluation #2: Patient feeling better. Much more calm. Resting. Educated patient on diagnosis and treatment plan, answered all question, patient verbalizes understanding. At this time patient will be discharged home, advised to return with new or worsening symptoms. Educated on worrisome signs and symptoms and when to return. At this time I feel comfortable discharge home. Time: 11:40 Medical Decision Making Medical Decision Making [facility] Narrative: 0800 38-year-old female presents with nausea, vomiting, abdominal spasms for the past few days. Was seen here yesterday was given Haldol but she thinks she had an allergic reaction to it. Physical exam benign History and physical exam concerning for cyclic vomiting, withdrawal, anxiety. No abdominal tenderness unlikely acute abdomen, appendicitis, obstruction, pancreatitis, diverticulitis. Plan labs, urine. Differential Diagnosis Differential Diagnoses: The differential diagnosis associated with the presentation includes History and physical exam concerning for cyclic vomiting, withdrawal, anxiety. No abdominal tenderness unlikely acute abdomen, appendicitis, obstruction, pancreatitis, diverticulitis. Admission/Observation Consideration of admission/observation: Escalation of care including admission/observation considered Unlikley Lab Data MDM Lab Attestation statement: I reviewed the patient's lab results. 11/13/23 05:29 11/13/23 05:29 Labs: Lab Results 11/13/23 11/13/23 Range/Units 05:29 06:05 WBC 11.8 H (4.8-10.8) X10*3/uL RBC 4.62 (4.20-5.50) X10*6/uL Hgb 15.1 (12.0-16.0) g/dl Hct 41.6 (37.0-47.0) % MCV 90.0 (80.0-98.0) fL MCH 32.7 (27.0-33.0) pg MCHC 36.3 H (31.0-35.0) g/dl RDW 11.9 (11.0-16.0) % Plt Count 340 (160-400) X10*3/uL MPV 9.6 (9.4-12.3) fL Immature Gran % (Auto) 0.3 (0.0-0.4) % Neut % (Auto) 75.1 H (45-73) % Lymph % (Auto) 16.8 L (20-40) % [place] % (Auto) 7.3 (2-11) % Eos % (Auto) 0.0 (0-4) % Baso % (Auto) 0.5 (0-2) % Lymph # (Auto) 2.0 (1.2-4.9) X10*3/uL [place] # (Auto) 0.9 (0.1-1.2) X10*3/uL Eos # (Auto) 0.0 (0.0-0.4) X10*3/uL Baso # (Auto) 0.1 (0.0-0.2) X10*3/uL Abs Immat Gran (auto) 0.03 (0.00-0.03) X10*3/uL Absolute Neuts (auto) 8.9 H (2.0-8.3) x10*3/uL Absolute Nucleated RBC 0.000 (0.0-0.012) X10*3/uL Nucleated RBC % (auto) 0.0 (0.0-0.2) /100WBC Sodium 141 (135-145) mmol/L Potassium 3.6 (3.3-5.1) mmol/L Chloride 105 (96-108) mmol/L Carbon Dioxide 26 (22-29) mmol/L Anion Gap 14 (12-20) BUN 9 (9-16) mg/dL Creatinine 0.79 (0.5-1.4) mg/dL Estim Creat Clear Calc 74.2 Estimated GFR > 60 Random Glucose 127 H (60-115) mg/dL Calcium 10.3 H D (8.4-10.2) mg/dL Total Bilirubin 0.4 (0.0-1.0) mg/dL AST 14 (5-31) U/L ALT 19 (0-31) U/L Alkaline Phosphatase 64 (39-117) U/L Total Protein 7.4 (6.5-8.0) g/dL Albumin 4.5 (3.5-5.0) g/dL Lipase 23 (8-78) U/L Beta HCG, Quant < 2 mIU/mL Urine Color Yellow Urine Appearance Cloudy Urine pH 6.5 (5.0-9.0) Ur Specific [place] 1.015 (1.005-1.025) Urine Protein Negative (Neg-Trace) mg/dL Urine Glucose (UA) Negative (Negative) mg/dL Urine Ketones Negative (Negative) mg/dL Urine Blood Trace H (Negative) Urine Nitrite Negative (Negative) Ur Leukocyte Esterase Trace H (Negative) Urine RBC 6-10 H (0-2) /HPF Urine WBC 6-10 H (0-5) /HPF Ur Squamous Epith Cells 11-20 (0-2) /HPF Urine Bacteria 4+ (None Seen) Hyaline Casts 3-5 (0-2) /LPF External Record Review External record reviewed: Inpatient record, Office record, Outpatient record, Prior outpatient labs, Prior outpatient radiology, Primary care record and Outside ED record Chronic Conditions Patient?s care impacted by: Other (alcohol use disorder ) Medications Administered Discontinued Medications Generic Name Dose Route Start Last Admin Trade Name Rocio PRN Reason Stop Dose Admin Diphenhydramine HCl 50 mg 11/13/23 08:06 11/13/23 08:18 Diphenhydramine Hcl 50 Mg/Ml Vial IVPUSH 11/13/23 08:07 50 mg ONCE ONE Administration Hydromorphone HCl 1 mg 11/13/23 10:11 11/13/23 10:14 Hydromorphone Hcl 1 Mg/Ml Syringe IVPUSH 11/13/23 10:12 1 mg ONCE ONE Administration Protocol Sodium Chloride 1,000 mls @ 999 mls/hr 11/13/23 09:15 11/13/23 11:24 Ns IV 11/13/23 10:15 Infused .Q1H1M VALORIE Infusion Ketorolac Tromethamine 30 mg 11/13/23 09:12 11/13/23 09:18 Ketorolac Tromethamine 15 Mg/Ml Vial IVPUSH 11/13/23 09:13 30 mg ONCE ONE Administration Lorazepam 1 mg 11/13/23 09:16 11/13/23 09:25 Lorazepam 2 Mg/Ml Vial IVPUSH 11/13/23 09:17 1 mg ONCE ONE Administration Metoclopramide HCl 10 mg 11/13/23 08:06 11/13/23 08:18 Metoclopramide Hcl 10 Mg/2 Ml Vial IVPUSH 11/13/23 08:07 10 mg ONCE ONE Administration Ondansetron HCl 4 mg 11/13/23 08:06 11/13/23 08:18 Ondansetron Hcl 4 Mg/2 Ml Vial IVPUSH 11/13/23 08:07 4 mg ONCE ONE Administration Critical Care Time Critical Care Time Critical Care Time: Yes Total Critical Care Time: 35 Attestation: I attest to this time spent taking care of the patient, obtaining history, physical, reviewing labs, imaging, re-evaluation after pain meds Discharge Plan Discharge Clinical Impression: Cyclical vomiting, Kidney calculi, UTI (urinary tract infection) Patient Disposition: Home, Self-Care Instructions: Kidney Stones (ED) Additional Instructions: Take your medications as prescribed. If you were prescribed antibiotics today, it is important that you take your medication to their entirety, do not skip any doses, do not finish them early. Follow-up with your primary care provider this week. Return to the emergency department with new or worsening symptoms. Such as fevers, chills, chest pain, shortness of breath, nausea, vomiting, dizziness, headache, vision changes, lethargy In case of emergency call 911 Prescriptions: New ondansetron HCl 4 mg tablet 4 mg PO Q8H PRN (Reason: nausea and vomiting) Qty: 14 0RF nitrofurantoin monohyd/m-cryst [Macrobid] 100 mg capsule 100 mg PO BID 5 Days Qty: 10 0RF Rx Instructions: must administer with a meal/food No Action azelastine 137 mcg (0.1 %) aerosol,spray 2 spray intranasal BID fluoxetine 20 mg capsule 20 mg PO DAILY fluticasone propionate 50 mcg/actuation spray,suspension 2 spray intranasal DAILY riboflavin (vitamin B2) 400 mg tablet 400 mg PO DAILY magnesium oxide 400 mg magnesium tablet 400 mg PO DAILY haloperidol 1 mg tablet 1 mg PO Q8H PRN (Reason: nausea and vomiting) Qty: 10 0RF lorazepam [Ativan] 1 mg tablet 1 mg PO BID PRN (Reason: anxiety) Qty: 14 0RF ondansetron 4 mg tablet,disintegrating 4 mg PO Q6-8H PRN (Reason: nausea and vomiting) Qty: 7 0RF ondansetron 4 mg tablet,disintegrating 4 mg PO Q6H PRN (Reason: nausea and vomiting) Qty: 20 0RF clonidine HCl 0.2 mg tablet 0.2 mg PO TID PRN (Reason: withdrawal symptoms) Qty: 14 0RF loperamide 2 mg capsule 2 mg PO Q4H PRN (Reason: loose stool) Qty: 20 0RF Rx Instructions: administer after each loose stool until symptoms controlled; do not exceed 8 mg per 24 hrs lorazepam [Ativan] 1 mg tablet 1 mg PO TID PRN (Reason: withdrawal symptoms) Qty: 6 0RF haloperidol 1 mg tablet 1 mg PO BID PRN (Reason: nausea and vomiting) Qty: 14 0RF lorazepam [Ativan] 1 mg tablet 1 mg PO BID PRN (Reason: anxiety) Qty: 6 0RF ibuprofen 600 mg tablet 600 mg PO Q6H PRN (Reason: pain) Qty: 20 0RF tramadol 50 mg tablet 50 mg PO Q6H PRN (Reason: severe pain (scale score 7-10)) Qty: 12 0RF promethazine 25 mg suppository 25 mg [place] Q6H PRN (Reason: nausea and vomiting) Qty: 12 0RF ondansetron 4 mg tablet,disintegrating 4 mg PO Q8H PRN (Reason: nausea and vomiting) Qty: 20 0RF lorazepam [Ativan] 1 mg tablet 1 mg PO BID PRN (Reason: anxiety) Qty: 14 0RF Referrals: [facility] [Provider Group] - 2 days Print Language: [place]an
[2023-11-13] MEDS: diphenhydrAMINE HCL 50 MG/ML VIAL IVPUSH (08:18)
[2023-11-13] MEDS: ondansetron HCL 4 MG/2 ML VIAL IVPUSH (08:18)
[2023-11-13] MEDS: Metoclopramide HCl 10 MG/2 ML VIAL IVPUSH (08:18)
[2023-11-13 08:20] VITALS: BP 121/90; PULSE 89; RESP 17; O2SAT 98
[2023-11-13] MEDS: Ketorolac Tromethamine 15 MG/ML VIAL 30 MG IVPUSH (09:18)
[2023-11-13] MEDS: 0.9 % Sodium Chloride 1,000 ML 999 ML IV (09:22)
[2023-11-13] MEDS: LORazepam 2 MG/ML VIAL 1 MG IVPUSH (09:25)
--- NOTE | 2023-11-13 10:01 | PC.NURSE ---
Patient continues to report uncontrolled pain, provider aware
[2023-11-13] MEDS: HYDROmorphone HCl 1 MG/ML SYRINGE IVPUSH (10:14)
== END 2023-11-13 12:15 | disposition home or self-care (01) ==
PROVIDERS: Emergency Provider Emergency Medicine Emergency Medical Services
DX: R11.15 Cyclical vomiting syndrome unrelated to migraine (principal); N20.0 Calculus of kidney; N39.0 Urinary tract infection, site not specified; Z79.899 Other long term (current) drug therapy
CPT/HCPCS: 36415; 74176; 80053; 81001; 83690; 84702; 85025; 87086; 96361; 96374; 96375; 99284; J1170; J1200; J1885; J2060; J2405; J2765

== ENCOUNTER 2023-12-24 15:08 | Outpatient (AMB) | payer OTHER, SELFPAY ==
--- NOTE | 2023-12-24 15:18 | MHC.OFFVIS ---
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 She has a past medical history of alcohol use disorder, anxiety, depression, marijuana use, and alcohol withdrawal. She presents to the office today as a new patient for nephrolithiasis. In discussion with the patient today she reports having seeked emergency room care for abdominal pain she had been experiencing at which time a CT of the abdomen was ordered and performed these results were reviewed with the patient today. There are multiple bilateral renal calculi and noted. There is a 3.5 mm calculus at the left UVJ, there is mild prominence of the left collecting system without hydronephrosis. She reports having completed antibiotic therapy for urinary tract infection. However, in review of patient's chart it appears urine culture grew lactobacillus. We discussed these results. She reports pain she had been experiencing has since subsided however does not recall passing/urinating any fragments. She currently denies any bothersome urinary issues or concerns. She denies urinary urgency, urinary frequency, incontinence, nocturia, hematuria, dysuria, foul smelling urine, changes to urinary stream, flank pain, fever, and or chills. She is happy with her current voiding parameters. She denies any previous history of nephrolithiasis and or surgical intervention for nephrolithiasis. In office urinalysis results reviewed with the patient today. Microscopic hematuria noted. She does report a longstanding history of nicotine dependence, vaping, and recreational marijuana smoking. We discussed at length potential causes of microscopic hematuria. I discussed reasons for blood in the urine may include but are not limited to kidney stones, cancer in the urinary tract, kidney stone disease or inflammatory conditions of the urinary tract. I have discussed workup to include cystoscopy evaluation. [facility], [facility] Medical History Alcohol use disorder Anxiety and depression Marijuana use, continuous Alcohol withdrawal Social History Alcohol intake: former Comment: Report given by previous RN (Codi) Patient Tobacco Use Status: Former Tobacco user Substance Use Type: Heroin Review of Systems Const All systems reviewed & are unremarkable except as noted in HPI and below Physical Exam Const General: cooperative, healthy appearing, comfortable, no acute distress, well developed, alert and awake Orientation/consciousness: patient oriented x3 Limitations: no limitations HEENT Head: Yes normal to inspection, Yes normocephalic and Yes atraumatic Ears: hearing grossly normal bilaterally Eyes General: appearance normal, both eyes and all related structures Neck Neck: Yes normal visual inspection and Yes trachea midline Chest Chest palpation & inspection: normal inspection of the chest Resp Effort & Inspection: normal respiratory effort and able to speak in complete sentences Cardio Rate: regular rate GI Inspection: Yes normal to inspection General: Yes no CVA tenderness Back/Spine/Pelvis Back: no CVA tenderness Skin General skin exam: no rashes or lesions noted Neuro General: patient oriented x3 Extrem General: Yes normal to inspection Psych Appearance: grossly normal and well kempt Mental Status: mental status grossly normal Speech and movement: Normal speech and movement present and Clear speech present Affect: normal affect Attitude: cooperative Thought process: Normal thought process present Thought content: Normal thought content present Insight: Fair insight present (Psych) Judgement: Fair judgement present (Psych) Results AMB Urinalysis, Automated UA Leukoctes 0 Daron/uL Last Edit by [employer] on 12/24/23 15:34 UA Nitrite Last Edit by [employer]oupopl[employer] on 12/24/23 15:34 UA Urobilinogen 0.2 mg/dL Last Edit by [employer] on 12/24/23 15:34 UA Protein 0 mg/dL Last Edit by [employer] on 12/24/23 15:34 UA pH 6.0 Last Edit by [employer]oupopl[employer]issa [facility] on 12/24/23 15:34 UA Blood 25 Hemant/uL Last Edit by [employer] on 12/24/23 15:34 UA Specific [place] 1.010 Last Edit by [employer] on 12/24/23 15:34 UA Ketone Negative Last Edit by [employer] on 08/23/24 15:34 UA Bilirubin 0 mg/dL Last Edit by Summer Ansari on 12/24/23 15:34 UA Glucose 0 mg/dL Last Edit by Summer Ansari on 12/24/23 15:34 Results Reviewed Results Reviewed: Laboratory Last Values Urine pH (Auto) 6.0 12/24/23 15:19 Specific [place] (Auto) 1.010 12/24/23 15:19 Urine Protein (Auto) 0 mg/dL 12/24/23 15:19 Glucose (UA)(Auto) 0 mg/dL 12/24/23 15:19 Urine Ketones (Auto) Negative 12/24/23 15:19 Urine Blood (Auto) 25 Hemant/uL 12/24/23 15:19 Urine Bilirubin (Auto) 0 mg/dL 12/24/23 15:19 Urine Urobilinogen (Auto) 0.2 mg/dL 12/24/23 15:19 Leukocyte Esterase (Auto) 0 Darno/uL 12/24/23 15:19 Date of Service: 11/13/23 EXAMINATION: CT ABDOMEN AND PELVIS WITHOUT CONTRAST FINDINGS: LUNG BASES: The visualized lung bases are unremarkable. LIVER, GALLBLADDER, AND BILIARY TREE: The liver is normal in size, shape, and attenuation. No focal hepatic lesion or biliary ductal dilatation is present. The gallbladder is unremarkable with no evidence of radiopaque gallstones, gallbladder wall thickening, or obvious pericholecystic inflammatory changes. PANCREAS: Unremarkable. SPLEEN: Unremarkable. ADRENAL GLANDS: Unremarkable. KIDNEYS AND URETERS: There are multiple bilateral renal calculi again noted. There is a 3.5 mm calculus at the left ureteropelvic junction, there is mild prominence of the left collecting system without hydronephrosis BLADDER: No bladder calculi. GASTROINTESTINAL TRACT: The small and large bowel are unremarkable. The appendix is unremarkable. ABDOMINAL WALL: No significant hernia is appreciated. LYMPH NODES: Normal. VASCULAR: Unremarkable. PELVIC VISCERA: Unremarkable. OSSEOUS STRUCTURES: Unremarkable. CT/CT abdomen pelvis wo IV con IMPRESSION: 1. There is a 3.5 mm calculus at the left ureteropelvic junction. There is mild prominence of the left collecting system without hydronephrosis. 2. Multiple bilateral renal calculi. Fleischner guidelines were followed. Assessment & Plan Assessment & Plan (1) Kidney calculi: Code(s): N20.0 - Calculus of kidney Category: Medical (2) Microscopic hematuria: Code(s): R31.29 - Other microscopic hematuria Category: Medical (3) Nicotine dependence: Code(s): F17.200 - Nicotine dependence, unspecified, uncomplicated Category: Medical Plan In office urinalysis results reviewed with the patient today; as noted above; will send for urine cytology. Recent CT results reviewed with the patient today; as noted above. Discussed at length potential causes of nephrolithiasis. Discussed, educated, and stressed the importance of adequate hydration relation to nephrolithiasis as well as overall health and well-being. Discussed at length potential causes of microscopic hematuria as well as further workup to include CT urogram, urine cytology, in office cystoscopy. Patient will think about in office cystoscopy Will obtain CT urogram for further assessment evaluation. Discussed adding 1 oz of lemon juice to water daily. Patient currently denies any bothersome urinary issues or concerns. She reports be happy with current voiding parameters. BUN and creatinine ordered for imaging Follow-up in 1-2 months with imaging to be completed prior; or sooner with any issues, concerns, and or questions. Orders: Orders AMB Urinalysis Automated Today Z13.9 - Encounter for screening, unspecified Blood Urea Nitrogen Today F17.200 - Nicotine dependence, unspecified, uncomplicated, N20.0 - Calculus of kidney, R31.29 - Other microscopic hematuria CT urogram Today F17.200 - Nicotine dependence, unspecified, uncomplicated, R31.29 - Other microscopic hematuria Creatinine Today F17.200 - Nicotine dependence, unspecified, uncomplicated, N20.0 - Calculus of kidney, R31.29 - Other microscopic hematuria Urine Cytology Today R31.29 - Other microscopic hematuria Patient Instructions: The patient had an opportunity to ask questions regarding the treatment plan. All questions were answered. Physical exam, labs, and imaging were discussed and reviewed in detail. As well as risks, benefits, and discussion of treatment choices. No major barriers to understanding were identified. The patient expressed understanding and agreement with the above treatment plan. The patient was made aware they should contact our office by phone for worsening of their current condition, the appearance of new symptoms, or with any questions or concerns. Compliance is encouraged with any medications and follow up testing that is ordered. It is a privilege to be allowed the opportunity to participate in? your urological care.? Again, if you have any questions or concerns If you have any questions or concerns please do not hesitate to contact me. The office is [phone]. This note is constructed using voice recognition software. While every effort has been made to ensure accuracy supervisor final errors may have been included. Yours sincerely, HEMANT Warren Coding Level of Care Code New Pt Level 3 (01088) Diagnoses Kidney calculi N20.0 Microscopic hematuria R31.29 Nicotine dependence F17.200
== END 2023-12-24 16:11 | disposition home or self-care (01) ==
PROVIDERS: Visit Provider Nurse Practitioner Family
DX: N20.0 Calculus of kidney (principal); R31.29 Other microscopic hematuria; F17.200 Nicotine dependence, unspecified, uncomplicated; Z13.9 Encounter for screening, unspecified
CPT/HCPCS: 99203

== ENCOUNTER 2023-12-24 15:08 | Outpatient (REF) | payer OTHER, SELFPAY ==
[2023-12-24 17:21] LABS: Urine Cytology See Pathology rpt
== END 2023-12-24 15:09 | disposition home or self-care (01) ==
LOC: HO.LNP 15:08
PROVIDERS: Visit Provider Nurse Practitioner Family
DX: R31.29 Other microscopic hematuria (principal)
CPT/HCPCS: 81003; 88112